=== PATIENT | male | born 1950 | race Caucasian/White ===

== ENCOUNTER → 2018-02-13 10:10 | Outpatient (CLI) | payer MEDICARE, BC, SELFPAY ==
--- NOTE | 2018-02-13 10:24 | MRI_ITS ---
STUDY: MRI BRAIN WITH AND WITHOUT CONTRAST (ATTENTION INTERNAL AUDITORY CANALS - I.A.C.'s) REASON FOR EXAM: Male, 67 years old. Dizzy spells x3 weeks. No problems. TECHNIQUE: Standardized multiplanar fat and water weighted pulse sequences were obtained. 9 ml of Gadavist contrast material was administered intravenously for the contrast portion of the examination. COMPARISON: None. FINDINGS: No restricted diffusion to suspect acute or subacute ischemic infarct. Normal bilateral temporal bones. Normal bilateral internal auditory canals. There is no demonstrated intracanalicular or cisternal vestibular schwannoma (acoustic neuroma). There is no enhancement of the bilateral VIIth or VIIIth cranial nerves. Normal bilateral cochlea, vestibules and semicircular canals. Normal size of the ventricles and extra-axial spaces for the patient's age. The left periventricular white matter and subcortical white matter T2 FLAIR hyperintensity foci are chronic white matter ischemic changes. Normal bilateral basal ganglia. Normal thalami. Normal flow voids within the major intracranial circulation suggesting patency by spin echo criteria. Normal venous enhancement. There is no enhancing intra-axial or extra-axial abnormality. There is no extra-axial fluid accumulation. Normal sella turcica, pituitary gland, infundibular stalk, optic chiasm and hypothalamus. Normal tectal plate and pineal gland. Normal midbrain, radhames and medulla. Normal cerebellum. Normal basal cisterns. No demonstrated orbital abnormality, within the constraints of a routine brain study. Normal visualized paranasal sinuses. Normal calvarium and skull base. Normal visualized soft tissue structures. Normal visualized upper cervical spine. MRI/Brain W/WO Contrast IMPRESSION: 1. Normal unenhanced and enhanced MRI of the bilateral internal auditory canals (I.A.C's). 2. Few chronic white matter ischemic changes in both cerebral hemispheres. Electronically Signed: Neal Purvis MD at 13:48 EDT , Service support ,
[2018-02-13 10:50] LABS: CREATININE FINGERSTICK 0.6 mg/dL (0.70-1.30); EGFR FINGERSTICK > 60.0000 mL/min (>60)
== END ==
PROVIDERS: Family Provider Family Medicine; PCP Family Medicine; Visit Provider Otolaryngology Otolaryngology/Facial Plastic Surgery
DX: R27.0 Ataxia, unspecified (principal)
CPT/HCPCS: 70553; A9585

== ENCOUNTER → 2018-02-25 08:10 | Outpatient (CLI) | payer MEDICARE, BC, SELFPAY ==
[2018-02-25 10:48] LABS: Absolute Lymphocyte Count 1.81 X10^3/ul (0.83-4.51); Absolute Neutrophil Count 3.4 X10^3/uL (2.0-7.7); Basophil# 0.02 X10^3/uL; Basophil% 0.3 % (0-1); Eosinophil# 0.24 X10^3/uL; Eosinophils% 4.1 % (0-5); Hematocrit 46.5 % (40-54); Hemoglobin 15.7 g/dl (13.0-16.5); Lymphocyte # 1.81 X10^3/ul (4.0); Lymphocyte % 31.2 % (19-41); Mean Corp Hgb Conc 33.8 g/gl (32-36); Mean Corpuscular Hgb 29.3 pg (27.0-32.0); Mean Corpuscular Volume 86.9 fL (80-94); Monocyte# 0.38 X10^3/uL; Monocyte% 6.5 % (0-10); Neutrophil # 3.35 X10^3/uL (2.7-7.7); Neutrophil % 57.7 % (47-70); POSITIVE COUNT NO; POSITIVE DIFFERENTIAL NO; POSITIVE MORPHOLOGY NO; Platelet Count 222 K/mm3 (150-450); RBC Distribution Width CV 13.3 % (11.6-14.6); RBC Distribution Width SD 41.8 fl (35.1-43.9); Red Blood Count 5.35 M/mm3 (4.6-6.2); White Blood Count 5.8 K/mm3 (4.4-11.0)
[2018-02-25 11:14] LABS: Anion Gap 7 (5-15); BUN 16 mg/dL (7-18); BUN/Creat Ratio 18.5 RATIO (10-20); Calcium,Total 8.5 mg/dL (8.5-10.1); Chloride 106 mmol/L (98-107); Cholesterol 172 mg/dL (200); Creatinine, Serum 0.86 mg/dL (0.70-1.30); EST Glomerular Filtration Rate 93 mL/min (>60); Est Glom Filt Rate - Afr Amer 113 mL/min (>60); Glucose 99 mg/dL (74-106); High Density Lipoprotein 45 mg/dL; Potassium 4.1 mmol/L (3.5-5.1); Sodium Level 142 mmol/L (136-145); Thyroid Stim Hormone (TSH) 1.36 uIU/mL (0.358-3.74); Triglycerides 100 mg/dL; Very Low Density Lipoprotein 20 mg/dL (5-40)
== END ==
PROVIDERS: Visit Provider Family Medicine
DX: I10 Essential (primary) hypertension (principal); R53.83 Other fatigue
CPT/HCPCS: 36415; 80048; 80061; 84403; 84443; 85025

== ENCOUNTER → 2018-03-11 14:29 | Outpatient (CLI) | payer MEDICARE, BC, SELFPAY ==
--- NOTE | 2018-03-11 14:33 | RAD_ITS ---
STUDY: X-RAY - CERVICAL SPINE REASON FOR EXAM: Male, 67 years old. Pain TECHNIQUE: 5 view(s) of the cervical spine were obtained. COMPARISON: None FINDINGS: There is degenerative disc disease at C3-C4, C4-C5, C5-C6 and C6-C7. There is multilevel facet osteoarthritis. There is minimal degenerative anterolisthesis at C5-C6. There is no fracture. There is no osseous destruction. The prevertebral soft tissue structures are intact. RAD/Cerv Spine 4 or 5 Views IMPRESSION: Extensive degenerative disease of the cervical spine Electronically Signed: Edward Luke MD at 22:24 EDT Tel , Service support ,
== END ==
PROVIDERS: Family Provider Family Medicine; PCP Family Medicine; Visit Provider Family Medicine
DX: R20.2 Paresthesia of skin (principal)
CPT/HCPCS: 72050

== ENCOUNTER → 2018-03-19 17:34 | Outpatient (CLI) | payer MEDICARE, BC, SELFPAY ==
--- NOTE | 2018-03-19 18:15 | MRI_ITS ---
STUDY: MRI CERVICAL SPINE WITHOUT CONTRAST REASON FOR EXAM: Male, 67 years old. Bilateral arm and hand numbness TECHNIQUE: Standardized fat and water weighted pulse sequences were obtained in the sagittal and axial planes. COMPARISON: None FINDINGS: Straightening of normal cervical lordotic curvature. Craniocervical junction appears unremarkable. No evidence for cord edema or myelomalacia. Minimal retrolisthesis of C3 on C4. Mild anterior wedging of the cervical vertebra seen at C4, C5 and C6 levels. Disc desiccation at all levels. Loss of disc height at C3-C4, C4-C5 levels with endplate degenerative changes. Scattered vertebral body hemangiomas. Anterior and posterior osteophytic spurring. Level by level segmental analysis: C2-C3 level: Uncovertebral joint and facet joint degenerative changes with broad-based disc osteophyte complexes resulting in mild right-sided neural foraminal narrowing without significant central canal stenosis. C3-C4 level: Uncovertebral joint and facet joint degenerative changes and broad-based disc osteophyte complexes with ligamentum flavum thickening resulting in severe bilateral neural foraminal narrowing and [id number] central canal stenosis. C4-C5 level: Uncovertebral joint and facet joint degenerative changes with broad-based disc osteophyte complexes resulting in moderate to severe bilateral neural foraminal narrowing and mild effacement of ventral thecal sac. C5-C6 level: Uncovertebral joint and facet joint degenerative changes are broad-based disc bulge resulting in mild left-sided neural foraminal narrowing and mild effacement of ventral thecal sac. C6-C7 level: Uncovertebral joint and facet joint degenerative changes with broad-based is bulge and right paracentral small disc protrusion with mild flattening of the ventral surface of the spinal cord and mild to moderate left-sided neural foraminal narrowing. C7-T1 level: Bilateral facet hypertrophy with uncovertebral joint degenerative changes and broad-based disc osteophyte complexes with a left paracentral small disc protrusion resulting in mild left-sided neural foraminal narrowing and mild effacement of the left ventrolateral thecal sac. IMPRESSION: Cervical spondylotic changes predominating at C3-C4, C4-C5 and C5-C6 levels. Please see above level by level complete analysis and details. No evidence for acute cervical spine fractures. Electronically Signed: Javon Ni, at 0:03 EDT Tel , Service support , MRI/Spine Cervical (Routine)
== END ==
PROVIDERS: Family Provider Family Medicine; PCP Family Medicine; Visit Provider Family Medicine
DX: R20.2 Paresthesia of skin (principal)
CPT/HCPCS: 72141

== ENCOUNTER 2018-05-05 12:07 | Emergency (ER) | payer MEDICARE, BC, SELFPAY ==
[2018-05-05 12:09] VITALS: BP 143/92; PULSE 85; RESP 18; TEMP 37.1; O2SAT 99; BMI 24.4
--- NOTE | 2018-05-05 12:51 | ED.DCSUM_ITS ---
- ER Visit Summary Date of Service: 05/05/18 Chief Complaint: [] Abdominal pain for about a month History of Present Illness: The patient is a 67 M [] 01 month he has had burning abdominal pain alternating with diarrheal episodes and P abdominal discomfort no nausea vomiting or fever no exposures other than reporting a month ago his seem to have the flu in this began after that he has been on no antibiotics, he has been seen by physicians and there was concern he may have irritable bowel started on Bentyl which did not help he is able to eat but still has crampy burning abdominal discomfort there is diffuse. He has no history of GI ailments, he is able to eat his bowel bladder habits have been normal he feels a sense of constipation Physical Examination: [] His vital signs are within normal range he is in no distress head neck chest unremarkable lungs clear heart tones normal the abdomen is soft there is a vague diffuse discomfort with no focality there is no pain in any specific area, there is no masses no pulsations no fullness rectal exam shows brown stool that soft nontender upper lower extremities and back exam unremarkable exam to inspection is unremarkable Test Results: [] Emergency Department Course and Treatment: [] Screening labs IV fluids pain management CT The patient's screening labs are generally unremarkable see those labs, CT abdomen shows nothing acute except for one loop of bowel that seems to be consistent with ileus or obstruction but the patient's had symptoms for over a month Had a long conversation with him and the we discussed all the above we discussed the need for additional outpatient management via his gastroenterology team the Ha[facility] a bland diet he was taking MiraLAX but stopped doing that as that made his stools very soft and runny, he will return for change in symptoms, he is comfortable with this plan Treatment Plan: [] Disposition: [] Home stable Impression: [] Abdominal pain etiology unclear This note was generated with [employer] dictation software. It may contain incorrect words, spelling, and punctuation that were not noted in review of the chart prior to signing ED Disposition - Plan for ED Patient: Chief Complaint: Abd Pain Referrals: Fernie Diaz MD [Primary Care Provider] -
[2018-05-05 13:29] VITALS: BP 138/64; PULSE 74; RESP 15; O2SAT 99
[2018-05-05] MEDS: 0.9% Normal Saline 1,000 ML 125 ML IV (13:32)
[2018-05-05] MEDS: Ondansetron 4 MG/2 ML Vial IV (13:32)
[2018-05-05] MEDS: morphine 8 MG/ML Syringe IV (13:33)
[2018-05-05 13:41] LABS: Bacteria 0 SEEN /hpf (None Seen); Mucous, Urine 0 SEEN /hpf (<or=2+); Red Blood Cells-Urine 0 SEEN /hpf (0-5); Squamous Epithelial Cells - UA 0 SEEN /hpf (0-5); White Blood Cells 0 SEEN /hpf (0-5)
[2018-05-05 13:43] LABS: Color, Urine Yellow (Yellow); Glucose, Dipstick Normal (Normal); Ketone-Dipstick Negative (Negative); Leukocyte Esterase-Dipstick 25 /ul (Negative); Nitrite-Dipstick Negative (Negative); Occult Blood-Urine Negative /ul (Negative); Protein-Dipstick Negative (Negative); Urine Bilirubin Dipstick Negative (Negative); Urine Clarity Clear (Clear); Urine Urobilinogen Normal (Normal)
[2018-05-05 13:45] LABS: Absolute Lymphocyte Count 1.86 X10^3/ul (0.83-4.51); Absolute Neutrophil Count 4.4 X10^3/uL (2.0-7.7); Basophil# 0.01 X10^3/uL; Basophil% 0.1 % (0-1); Eosinophil# 0.06 X10^3/uL; Eosinophils% 0.9 % (0-5); Hematocrit 46.9 % (40-54); Lymphocyte # 1.86 X10^3/ul (4.0); Lymphocyte % 27.6 % (19-41); Mean Corp Hgb Conc 34.1 g/gl (32-36); Mean Corpuscular Hgb 29.7 pg (27.0-32.0); Mean Platelet Vol. 9.3 fl (6.2-12.0); Monocyte# 0.46 X10^3/uL; Monocyte% 6.8 % (0-10); Neutrophil # 4.36 X10^3/uL (2.7-7.7); Neutrophil % 64.6 % (47-70); POSITIVE COUNT NO; POSITIVE DIFFERENTIAL NO; POSITIVE MORPHOLOGY NO; Platelet Count 210 K/mm3 (150-450); RBC Distribution Width CV 12.7 % (11.6-14.6); RBC Distribution Width SD 40.4 fl (35.1-43.9); Red Blood Count 5.39 M/mm3 (4.6-6.2); White Blood Count 6.8 K/mm3 (4.4-11.0)
[2018-05-05 14:17] LABS: AST(SGOT) 11 U/L (15-37); Alanine Aminotransfer ALT/SGPT 18 U/L (16-61); Albumin, Serum 3.7 g/dL (3.2-5.0); Alkaline Phosphatase 61 U/L (45-117); Anion Gap 8 (5-15); BUN 10 mg/dL (7-18); BUN/Creat Ratio 11.4 RATIO (10-20); Bilirubin, Direct 0.13 mg/dL (0.00-0.30); Calcium,Total 8.5 mg/dL (8.5-10.1); Chloride 106 mmol/L (98-107); Creatinine, Serum 0.87 mg/dL (0.70-1.30); EST Glomerular Filtration Rate 92 mL/min (>60); Est Glom Filt Rate - Afr Amer 111 mL/min (>60); Estimated Creatinine Clearance 90.56 ml/min; Glucose 105 mg/dL (74-106); Lipase 238 U/L (73-393); Potassium 3.9 mmol/L (3.5-5.1); Protein, Total 6.7 g/dL (6.4-8.2); Sodium Level 142 mmol/L (136-145)
[2018-05-05 14:25] VITALS: BP 128/86; PULSE 67; RESP 15; O2SAT 96
[2018-05-05 15:30] VITALS: BP 110/64; PULSE 73; RESP 15; O2SAT 99
--- NOTE | 2018-05-05 16:01 | ED.DEP ---
ED Disposition - Plan for ED Patient: Chief Complaint: Abd Pain Instructions: ED Abdominal Pain Unkn Cause Referrals: Fernie Diaz MD [Primary Care Provider] -
[2018-05-05 16:17] VITALS: BP 136/93; PULSE 73; RESP 16; O2SAT 96
== END 2018-05-05 16:18 | disposition home or self-care (01) ==
PROVIDERS: Emergency Provider Emergency Medicine; Family Provider Family Medicine; PCP Family Medicine
DX: R10.9 Unspecified abdominal pain (principal); K59.00 Constipation, unspecified; R19.7 Diarrhea, unspecified; Z79.899 Other long term (current) drug therapy
CPT/HCPCS: 74176; 80048; 80076; 81001; 83690; 85025; 96361; 96374; 96375; 99283; J7030; J2405

== ENCOUNTER → 2018-05-10 08:57 | Outpatient (CLI) | payer MEDICARE, BC, SELFPAY ==
--- NOTE | 2018-05-10 09:10 | RAD_ITS ---
PROCEDURE: SMALL BOWEL SERIES DATE OF EXAMINATION: May 10, 2018. INDICATION: Male, 67 years old. One-month history of abdominal pain. PHYSICIAN: Harpal Mares M.D. FLUOROSCOPY TIME (if supplied): (30 seconds) minutes/seconds TECHNIQUE: Radiographic and fluoroscopic images were taken of the small intestine following the ingestion of barium. COMPARISON: None. FINDINGS: A preliminary supine KUB was obtained. There is an unremarkable bowel gas pattern. Fecal material is present throughout the colon. Phleboliths are present within the pelvis. The lung bases are unremarkable. The osseous structures are normal. The patient orally ingested approximately 12 ounces of thin barium Normal visualized fundus, body, and antrum of the stomach. Normal duodenal bulb, C-loop, and proximal jejunum. Normal visualized mucosal folds of the jejunum and ileum. There are no demonstrated dilatations, strictures, or masses of the small intestine. There is no mass displacement of the loops of small intestine. There is a normal motor pattern with barium reaching the colon within approximately 30 minutes. Spot films under fluoroscopic observation demonstrated a normal terminal ileum and ileocecal valve. RAD/Small Bowel Series Only IMPRESSION: Normal small bowel series. Electronically Signed: Harpal Mares MD at 8:36 EDT Tel [phone], Service support ,
== END ==
PROVIDERS: Family Provider Family Medicine; PCP Family Medicine; Visit Provider Internal Medicine Gastroenterology
DX: R10.9 Unspecified abdominal pain (principal); K56.7 Ileus, unspecified
CPT/HCPCS: 74250

== ENCOUNTER 2018-05-28 09:57 | Inpatient (IN) | payer MEDICARE, BC, SELFPAY ==
[2018-05-28] VITALS (10 sets, daily range): BP systolic 119–142; BP diastolic 74–91; PULSE 80–104; RESP 16–18; TEMP 36.4–36.9; O2SAT 95–99; BMI 23.4; BMI 23.5
--- NOTE | 2018-05-28 10:21 | EKG12_ITS ---
Test Reason : ABD PAIN Blood Pressure : / mmHG Vent. Rate : 086 BPM Atrial Rate : 086 BPM P-R Int : 148 ms QRS Dur : 082 ms QT Int : 394 ms P-R-T Axes : 061 -18 071 degrees QTc Int : 471 ms Sinus rhythm with occasional Premature ventricular complexes Otherwise normal ECG Confirmed by ELVI BARTON, BHARATH ([id number]), magazine editor IESHA SMILEY ([id number]) on 06/03/2018 3:28:14 PM Referred By: Jose Antonio Alegria Confirmed By:BHARATH BOLES MD
--- NOTE | 2018-05-28 10:22 | US_ITS ---
STUDY: ABDOMINAL ULTRASOUND - RIGHT UPPER QUADRANT REASON FOR VISIT: Male, 68 years old. Epigastric pain x1 month TECHNIQUE: Ultrasound evaluation of the right upper quadrant was performed with real-time and static soares-scale imaging. TECHNICAL QUALITY: Adequate. COMPARISON: None. FINDINGS: Liver: The liver measures 16.7 cm. There is normal echogenicity of the liver. The bile ducts are within normal limits. There is hepatic color flow. The direction of portal flow is hepatopetal. There is no demonstrated mass lesion. Gallbladder: Normal distended gallbladder. The gallbladder wall measures 2.6 mm. There is a negative sonographic Overton's sign. There is no pericholecystic fluid. There are no gallstones. Common Bile Duct (C.B.D.): The common bile duct measures 3.8 mm. Pancreas: Normal size of the head, body and tail of the pancreas. There is normal echogenicity of the pancreas. There is no demonstrated pancreatic mass or cyst. Right Kidney: Normal size of the right kidney. The right kidney measures 12.1 cm. Normal renal cortex. The right cortex measures 1.1 cm. There is no demonstrated renal mass or cyst. There is no right hydronephrosis. Punctate 3 mm nonobstructing mid pole stone. US/Gallbladder IMPRESSION: Normal right upper quadrant ultrasound examination. Punctate nonobstructing right midpole stone Electronically Signed: Justo Duque DO at 12:10 EDT Tel , Service support ,
[2018-05-28 10:38] LABS: Absolute Neutrophil Count 4.9 X10^3/uL (2.0-7.7); Basophil# 0.01 X10^3/uL; Basophil% 0.2 % (0-1); Eosinophil# 0.06 X10^3/uL; Eosinophils% 0.9 % (0-5); Hematocrit 42.7 % (40-54); Hemoglobin 14.4 g/dl (13.0-16.5); Lymphocyte % 15.2 % (19-41); Mean Corp Hgb Conc 33.7 g/gl (32-36); Mean Corpuscular Hgb 29.1 pg (27.0-32.0); Mean Corpuscular Volume 86.4 fL (80-94); Monocyte# 0.62 X10^3/uL; Monocyte% 9.4 % (0-10); Neutrophil # 4.89 X10^3/uL (2.7-7.7); Neutrophil % 74.3 % (47-70); Platelet Count 243 K/mm3 (150-450); RBC Distribution Width CV 12.7 % (11.6-14.6); RBC Distribution Width SD 40.3 fl (35.1-43.9); Red Blood Count 4.94 M/mm3 (4.6-6.2); White Blood Count 6.6 K/mm3 (4.4-11.0)
[2018-05-28 10:39] LABS: POSITIVE COUNT NO; POSITIVE DIFFERENTIAL NO; POSITIVE MORPHOLOGY NO
[2018-05-28] MEDS: Ondansetron 4 MG/2 ML Vial IV (10:43)
[2018-05-28] MEDS: Morphine 4 MG/ML Syringe IV (10:43)
[2018-05-28] MEDS: 0.9% Normal Saline 1,000 ML 125 ML IV ×2 (10:43→17:01)
[2018-05-28 11:01] LABS: ALB/GLOB Ratio 0.8 RATIO (0.9-2.4); AST(SGOT) 27 U/L (15-37); Alanine Aminotransfer ALT/SGPT 38 U/L (16-61); Alkaline Phosphatase 109 U/L (45-117); Anion Gap 7 (5-15); BUN 10 mg/dL (7-18); BUN/Creat Ratio 13.8 RATIO (10-20); Calcium,Total 8.4 mg/dL (8.5-10.1); Chloride 103 mmol/L (98-107); Creatinine, Serum 0.72 mg/dL (0.70-1.30); EST Glomerular Filtration Rate 114 mL/min (>60); Est Glom Filt Rate - Afr Amer 138 mL/min (>60); Estimated Creatinine Clearance 77.68 ml/min; Globulin 3.9 g/dL (2.2-4.2); Glucose 112 mg/dL (74-106); Lipase 230 U/L (73-393); Potassium 3.8 mmol/L (3.5-5.1); Protein, Total 6.9 g/dL (6.4-8.2); Sodium Level 139 mmol/L (136-145)
[2018-05-28 11:05] LABS: Lactic Acid 0.9 mmol/L (0.4-2.0)
[2018-05-28] MEDS: Aspirin 81 MG TAB.CHEW 324 MG PO (11:44)
--- NOTE | 2018-05-28 11:45 | CT_ITS ---
STUDY: CT ABDOMEN AND PELVIS WITH CONTRAST REASON FOR EXAM: Male, 68 years old. Abdominal pain. Diarrhea and bloating. RADIATION DOSAGE (If Supplied By Facility): CTDIvol = ( 12.16 ) mGy, DLP = ( 884.79 ) mGycm TECHNIQUE: Transaxial images were obtained from the dome of the diaphragm to the symphysis pubis with oral contrast. 100ML ml of Isovue 300 contrast was administered. Sagittal and coronal images were reconstructed. Individualized dose optimization techniques were used for this CT. COMPARISON: Comparison is made with prior examination dated May 05, 2018. FINDINGS: Minimal increased markings at the left lung base suggestive of mild atelectasis. Coronary artery calcification. Normal liver. Normal gallbladder and extrahepatic biliary system. There is a benign calcified granuloma of the spleen. Normal pancreas. Normal bilateral adrenal glands. Normal right kidney. Normal left kidney. There is a small hiatal hernia. Normal small intestine. There are multiple colonic diverticula consistent with diverticulosis. The appendix is visualized and appears normal. There is scattered atherosclerotic calcification of the abdominal aorta, without a demonstrated aneurysm. Normal inferior vena cava. Normal retroperitoneum. Normal urinary bladder. There is a left-sided inguinal hernia containing adipose tissue. There are diffuse degenerative changes of the visualized lumbar spine. CT/Abdomen/Pelvis WITH Contrast IMPRESSION: No acute abnormality is seen. Electronically Signed: Harpal Mares MD at 14:49 EDT Tel [phone], Service support ,
--- NOTE | 2018-05-28 12:12 | ED.VISSUMM ---
- ER Visit Summary Date of Service: 05/28/18 Chief Complaint: [Abdominal pain] History of Present Illness: The patient is a 68 M [presents the emergency department complaint of abdominal pain times 3 months. Patient states that he was seen in the emergency department about a month ago and had a CAT scan that did not show anything significant subsequently patient followed up with Dr. Becker who ordered a small bowel follow-through that was normal. Patient had a burning diffuse abdominal pain is been continuous. Patient states that food makes the pain worse. Patient's had nausea. Patient is lost over 7 pounds. also states that his stools have been very thin and pencil like. Patient denies any blood in his stool or black tarry stools. Denies any fevers. He denies any chest pain or shortness of breath.] Physical Examination: [HEENT-PERRLA, EOMI. Cranial nerves II through XII grossly intact. TMs clear. Mucous membranes moist. No adenopathy. Cardiovascular-regular rate and rhythm without murmur or ectopy Lungs-clear to auscultation, chest wall stable without crepitus or subcu emphysema Abdomen-normoactive bowel sounds, soft. Patient has diffuse tenderness to palpation. There is no rebound, rigidity, or perineal signs. Extremities-intact ?4, normal range of motion, normal pulses, atraumatic] Test Results: [EKG obtained on arrival shows sinus rhythm with a ventricular rate of 86 bpm with occasional PVCs otherwise nothing acute. CBC with differential was normal. Chemistries were normal. All LFTs were normal. Lipase was normal. Troponin was elevated 1.06. Gallbladder ultrasound ordered and results pending. CT scan of abdomen and pelvis with IV and p.o. contrast ordered and pending.] Emergency Department Course and Treatment: [Patient was treated with aspirin. Case was discussed with Dr. Real Roque the patient has seen in the past and I was asked to obtain a CT scan of the abdomen pelvis with IV contrast and he will consult on the case. I also discussed case with aquatics instructor on-call Dr. Fernie Murcia who will consult. I discussed case with hospitalist Dr. Alegria who will evaluate patient for admission.] Patient was medicated with morphine and Zofran as well as a GI cocktail. Patient received aspirin in the department. Treatment Plan: [Admit for further workup and evaluation] Disposition: [Admit] Impression: [Abdominal pain-etiology uncertain Non-ST elevation [place]] This note was generated with [email or web address] dictation software. It may contain incorrect words, spelling, and punctuation that were not noted in review of the chart prior to signing ED Disposition - Plan for ED Patient: Chief Complaint: Abd Pain Referrals: Fernie Diaz MD [Primary Care Provider] -
--- NOTE | 2018-05-28 12:15 | ED.DCSUM_ITS ---
- ER Visit Summary Date of Service: 05/28/18 Chief Complaint: [Abdominal pain] History of Present Illness: The patient is a 68 M [presents the emergency department complaint of abdominal pain times 3 months. Patient states that he was seen in the emergency department about a month ago and had a CAT scan that did not show anything significant subsequently patient followed up with Dr. Becker who ordered a small bowel follow-through that was normal. Patient had a burning diffuse abdominal pain is been continuous. Patient states that food makes the pain worse. Patient's had nausea. Patient is lost over 7 pounds. also states that his stools have been very thin and pencil like. Patient denies any blood in his stool or black tarry stools. Denies any fevers. He denies any chest pain or shortness of breath.] Physical Examination: [HEENT-PERRLA, EOMI. Cranial nerves II through XII grossly intact. TMs clear. Mucous membranes moist. No adenopathy. Cardiovascular-regular rate and rhythm without murmur or ectopy Lungs-clear to auscultation, chest wall stable without crepitus or subcu emphysema Abdomen-normoactive bowel sounds, soft. Patient has diffuse tenderness to palpation. There is no rebound, rigidity, or perineal signs. Extremities-intact ?4, normal range of motion, normal pulses, atraumatic] Test Results: [EKG obtained on arrival shows sinus rhythm with a ventricular rate of 86 bpm with occasional PVCs otherwise nothing acute. CBC with differential was normal. Chemistries were normal. All LFTs were normal. Lipase was normal. Troponin was elevated 1.06. Gallbladder ultrasound ordered and results pending. CT scan of abdomen and pelvis with IV and p.o. contrast ordered and pending.] Emergency Department Course and Treatment: [Patient was treated with aspirin. Case was discussed with Dr. Real Roque the patient has seen in the past and I was asked to obtain a CT scan of the abdomen pelvis with IV contrast and he will consult on the case. I also discussed case with high school librarian on-call Dr. Fernie Mrucia who will consult. I discussed case with hospitalist Dr. Alegria who will evaluate patient for admission.] Patient was medicated with morphine and Zofran as well as a GI cocktail. Patient received aspirin in the department. Treatment Plan: [Admit for further workup and evaluation] Disposition: [Admit] Impression: [Abdominal pain-etiology uncertain Non-ST elevation [place]] This note was generated with [employer] dictation software. It may contain incorrect words, spelling, and punctuation that were not noted in review of the chart prior to signing ED Disposition - Plan for ED Patient: Chief Complaint: Abd Pain Referrals: Fernie Diaz MD [Primary Care Provider] -
--- NOTE | 2018-05-28 12:17 | CM.ED ---
CM INITIAL ASSESSMENT: Patient assessed, with at bedside, in the ED. Home: Patient states he lives in a two-story home with his . He states he has first floor setup, if needed. HHS/Aides: Denies present and past. Patient states his is a great caregiver. DME: Denies DME use. Patient's states their basement is full of DME from her parents' use, if needed. She states the only thing they don't have is an elevated toilet seat. Home Oxygen: Denies. Pharmacy: [facility] in [place]. Advance Directives: Yes, these documents are verified in e-chart. Patient's , Reshma, is his medical POA. PCP: Fernie Diaz Specialists: Dr. Becker for recent abdominal pain. Dr. Simon for hernia surgery one year ago. DC Plan: Home, with family support. CM will continue to follow for safe and effective discharge planning.
--- NOTE | 2018-05-28 12:57 | HP.PCM_ITS ---
Problem List (1) Abdominal pain Status: Acute (2) Cervical neuropathy Status: Chronic Comment: Cervical fusion surgery on 05/20/2018 (3) Elevated troponin Status: Chronic (4) Hypertension Status: Chronic History of Present Illness Date of Admission: 05/28/18 Chief Complaint: Abdominal pain for 3 months The patient is a 68 year old M with history of hypertension and cervical neuropathy status post cervical spine fusion about a week ago at [facility] came to ER with abdominal pain for about 3 months. His pain is constant, generalized but worse in upper abdomen without radiation to chest. Patient has nausea and food makes the abdominal pain worse and has loss of appetite. Patient has lost weight about 7 pounds in last 3 months. Also complaining of pencil thin like stool and sometimes he has diarrhea alternating with constipation. Patient had right inguinal hernia repair by Dr. Simon in the past and would like to see him. Patient has seen Dr. Mcgee about 3 weeks ago and had small bowel follow-through series which showed normal visualized mucosal folds of jejunum and ileum with no demonstrated dilatation, stricture or masses of the small intestine. Normal motor pattern of colon. Prior to that, he had CT abdomen 05/05/2018 without contrast which reported single mildly dilated small bowel loop with air-fluid level in left midabdomen otherwise normal. He had multiple colonic diverticula. In ED, right upper quadrant sonogram was done and is reported normal. Lab tests are unremarkable except troponin came 1.06 [] Past Medical History Past Medical History (Chronic Problems): Chronic Problems (Last Updated 11/24/17 @ 09:22 by Sylvia Garcia) Cervical neuropathy (Chronic) Cervical fusion surgery on 05/20/2018 Elevated troponin (Chronic) Hypertension (Chronic) Medical History: Medical History (Last Updated 11/24/17 @ 09:22 by Sylvia Garcia) HTN (hypertension) I10 Allergies No Known Allergies Allergy (Verified 05/28/18 10:01) Home Medications: Ambulatory Orders Medication Instructions Recorded Finasteride [Proscar] 5 mg PO DAILY 05/05/18 Losartan Potassium 50 mg PO DAILY 05/05/18 Omeprazole Magnesium [Prilosec Otc] 20 mg PO DAILY 05/05/18 Dicyclomine HCl 20 mg PO TID 05/28/18 Duloxetine HCl 30 mg PO DAILY 05/28/18 Gabapentin [Neurontin] 300 mg PO DAILY 05/28/18 Surgical History: no surgical history Smoking Status: Former smoker - *Family History Paternal History Items: No pertinent history Review of Systems Constitutional: Reports: Anorexia, Malaise, Weakness, Weight Change, Fatigue. Denies: Chills, Fever HEENT: Denies: Head Aches, Sinus Congestion, Sinus Drainage Cardiovascular: Denies: Chest Pain, Palpitations Respiratory: Denies: Cough, Shortness of breath at rest, Sputum production Gastrointestinal: Reports: Abdominal Pain, Constipation, Diarrhea, Nausea. Denies: Vomiting Genitourinary: Denies: Dysuria, Frequency, Hematuria, Hesitancy Musculoskeletal: Reports: Joint stiffness, Neck Pain. Denies: Joint Pain, Joint Tenderness Skin: Denies: Rash, Wounds Neurological: Denies: Numbness, Tingling, Focal weakness Psychiatric: Denies: Anxiety, Depression, Homicidal Ideations, Suicidal Ideation s Hematologic/ Lymphatic: Denies: Easy Bruising, Easy Bleeding VTE Information - Inpt Only VTE Present on Admission: No VTE Mechan Device Prophylaxis: SCD's, None VTE Pharm Prophylaxis ordered?: Yes Patient Problems: Active and Suspected Problems (Last Updated 11/24/17 @ 09:22 by Sylvia Garcia) Abdominal pain (Acute) - Physical Exam General: Alert, Oriented x3, Cooperative HEENT: Atraumatic, PERRLA, EOMI, Normocephalic Oral: Dry Mucosa Neck: Supple, No JVD, Negative Carotid Bruits Lungs: Clear to auscultation, Normal air movement, No rhonchi, No wheeze, No rales Cardiovascular: Regular rate, Regular Rhythm, Normal S1, Normal S2, No murmurs Abdomen: Bowel Sounds Present, Soft, Non-Distended, Hypoactive Bowel Sounds, Tender - Mild diffuse tenderness present predominantly in upper abdomen both right and left upper quadrants Extremities: No edema, Capillary Refill Less than 3 Seconds Skin: No rashes, No breakdown Musculoskeletal: No Tenderness to Palpation of Joints or Extremities Neurological: Cranial nerves II-XII grossly intact Psych/Mental Status: Normal Affect, Appropriate Vital Signs Temp Pulse Resp BP Pulse Ox 97.6 F L 84 18 119/84 H 97 05/28/18 09:58 05/28/18 12:14 05/28/18 12:14 05/28/18 12:14 05/28/18 12:14 Oxygen Delivery Method Room Air Weight: 177 lb 11.081 oz Body Mass Index (BMI) 23.4 Laboratory Tests Past 24 Hrs 05/28/18 05/28/18 05/28/18 10:30 10:30 10:30 WBC 6.6 RBC 4.94 Hgb 14.4 Hct 42.7 MCV 86.4 MCH 29.1 MCHC 33.7 RDW 12.7 RDW Differential 40.3 Plt Count 243 MPV 9.0 Immature Gran % (Auto) 0.000 Neut % (Auto) 74.3 H Lymph % (Auto) 15.[address] [place] % (Auto) 9.4 Eos % (Auto) 0.9 Baso % (Auto) 0.2 Absolute Neuts (auto) 4.9 Absolute Lymphs (auto) 1.00 Total Counted Not Reportable Sodium 139 Potassium 3.8 Chloride 103 Carbon Dioxide 29.0 Anion Gap 7 BUN 10 Creatinine 0.72 Estim Creat Clear Calc 77.68 Est GFR (MDRD) Af Amer 138 Est GFR (MDRD) Non-Af 114 BUN/Creatinine Ratio 13.8 Glucose 112 H Lactic Acid 0.9 Calcium 8.4 L Total Bilirubin 0.50 AST 27 ALT 38 Alkaline Phosphatase 109 Troponin I 1.060 H* Total Protein 6.9 Albumin 3.0 L Globulin 3.9 Albumin/Globulin Ratio 0.8 L Lipase 230 Assessment/Plan All Active Problems (Last Updated 11/24/17 @ 09:22 by Sylvia Garcia) Abdominal pain (Acute) The patient is a 68 year old M with history of hypertension and cervical neuropathy status post cervical spine fusion about a week ago at [facility] came to ER with abdominal pain for about 3 months. His pain is constant, generalized but worse in upper abdomen without radiation to chest. Patient has nausea and food makes the abdominal pain worse and has loss of appetite. Patient has lost weight about 7 pounds in last 3 months. Also complaining of pencil thin like stool and sometimes he has diarrhea alternating with constipation. Patient had right inguinal hernia repair by Dr. Simon in the past and would like to see him. Patient has seen Dr. Mcgee about 3 weeks ago and had small bowel follow-through series which showed normal visualized mucosal folds of jejunum and ileum with no demonstrated dilatation, stricture or masses of the small intestine. Normal motor pattern of colon. Prior to that, he had CT abdomen 05/05/2018 without contrast which reported single mildly dilated small bowel loop with air-fluid level in left midabdomen otherwise normal. He had multiple colonic diverticula. In ED, right upper quadrant sonogram was done and is reported normal. Lab tests are unremarkable except troponin came 1.06. EKG shows normal sinus rhythm with occasional PVCs no significant ST-T changes suggestive of ischemia 1. Subacute/chronic abdominal pain, etiology unclear, probably malabsorption syndrome: Patient had extensive abdominal imaging workup including CT abdomen, ultrasound and small bowel series as mentioned above. He also had about 3 times colonoscopy every 10 years starting at age 48 and last one about for 5 years ago and was told everything normal although no document available to corroborate that. Patient is being admitted on PCU. IV fluid normal saline. We will keep patient n.p.o. Stool studies ordered including lactoferrin, ova parasite, occult blood. Stool for fecal fat celiac disease panel ordered. General surgery consult. Dr. Simon advised CT abdomen with oral and IV contrast. Symptomatic management for nausea, abdominal pain. 2. Elevated troponin: Patient denies any previous cardiopulmonary history. He had a stress, more than 25 years ago and was normal. 2D echo ordered. EKG does not show ischemic changes. Repeat EKG ordered. Serial troponin ordered. cardiology consult Dr. Murcia requested. 3. Recent cervical spine fusion surgery: Dressing is dry. Patient had cervical fusion surgery in [facility] on 05/21/2018. Will need change of dressing. 4. Hypertension: Blood pressure is controlled. Tubovillous: On heparin 5000 units twice daily. Laboratory Results 05/28/18 10:30: WBC 6.6, RBC 4.94, Hgb 14.4, Hct 42.7, MCV 86.4, MCH 29.1, MCHC 33.7, RDW 12.7, RDW Differential 40.3, Plt Count 243, MPV 9.0, Immature Gran % (Auto) 0.000, Neut % (Auto) 74.3 H, Lymph % (Auto) 15.2 L, [facility] % (Auto) 9.4, Eos % (Auto) 0.9, Baso % (Auto) 0.2, Absolute Neuts (auto) 4.9, Absolute Lymphs (auto) 1.00, Total Counted Not Reportable 05/28/18 10:30: Sodium 139, Potassium 3.8, Chloride 103, Carbon Dioxide 29.0, Anion Gap 7, BUN 10, Creatinine 0.72, Estim Creat Clear Calc 77.68, Est GFR (MDRD) Af Amer 138, Est GFR (MDRD) Non-Af 114, BUN/Creatinine Ratio 13.8, Glucose 112 H, Calcium 8.4 L, Total Bilirubin 0.50, AST 27, ALT 38, Alkaline Phosphatase 109, Troponin I 1.060 H*, Total Protein 6.9, Albumin 3.0 L, Globulin 3.9, Albumin/Globulin Ratio 0.8 L, Lipase 230 05/28/18 10:30: Lactic Acid 0.9 Clinical Impression(s) from Imaging Studies Gallbladder Ultrasound 05/28/18 10:22 IMPRESSION: Normal right upper quadrant ultrasound examination. Punctate nonobstructing right midpole stone Code Visit Inpatient E&M: 86351 Init Hosp L3
--- NOTE | 2018-05-28 13:05 | ECHOD_ITS ---
Reason For Study: ELEVATED TROPONIN Procedure This was a 2D Doppler, Color Flow transthoracic echocardiogram. Pt in supine position s/p LHC/ PTCA. Exam performed portable in ICU/CCU. Left Ventricle Mildly dilated left ventricle. The estimated ejection fraction is 40 %. Stage 1 diastolic dysfunction. There is moderate global hypokinesis of the left ventricle. Right Ventricle Normal size and thickness. Normal systolic function. Atria Normal left atrium. Normal right atrium. Normal atrial septum. Mitral Valve The mitral valve is structurally normal. No prolapse or stenosis seen. Tricuspid Valve Normal tricuspid valve. Unable to estimate RV systolic pressure due to inadequate jet, pulmonary artery pressure probably normal. Aortic Valve Trisinus/trileaflet aortic valve. Mild focal aortic valve thickening. Mild (1+) aortic valve insufficiency. Pulmonic Valve Normal pulmonic valve. Mild (1+) pulmonic valve insufficiency. Great Vessels Normal aortic root. Normal arch. Normal inferior vena cava. Inferior vena cava collapse with sniff. Pericardium/Pleural No pericardial effusion. MMode/2D Measurements & Calculations LVIDd: 5.3 cm IVSd: 0.97 cm Ao root diam: 4.2 cm LVIDs: 4.1 cm LVPWd: 0.94 cm LA dimension: 3.1 cm RVDd: 2.6 cm FS: 22.5 % LAV(MOD-bp): 45.9 ml LA A4 area: 17.6 cm2 RA A4 area: 13.0 cm2 LAV(MOD-bp) Indexed: 22.4 ml/m2 LAV(MOD-sp2): 42.8 ml LAV(MOD-sp4): 44.2 ml Time Measurements MV dec time: 0.26 sec Doppler Measurements & Calculations MV E max donald: 50.7 cm/sec Lat Peak E' Donald: 5.7 cm/sec Med Peak E' Donald: 4.5 cm/sec MV A max donald: 66.5 cm/sec E/E' lat: 8.9 E/E' med: 11.4 MV E/A: 0.76 Ao V2 max: 96.9 cm/sec AI max donald: 381.7 cm/sec LV V1 max: 92.4 cm/sec Ao max P.8 mmHg AI max P.3 mmHg LV V1 max P.4 mmHg AI dec slope: 223.7 cm/sec2 AI P1/2t: 499.8 msec PA V2 max: 99.0 cm/sec Interpretation Summary Mildly dilated left ventricle. The estimated ejection fraction is 40 %. There is moderate global hypokinesis of the left ventricle. Stage 1 diastolic dysfunction. Unable to estimate RV systolic pressure due to inadequate jet, pulmonary artery pressure probably normal. Mild (1+) aortic valve insufficiency. There is no comparison study available. Ordering Physician: Jose Antonio Alegria Referring Physician: SHELL YBARRA Performed By: Junie Delacruz RDCS, RVT
[2018-05-28 15:07] LABS: Bacteria 0 SEEN /hpf (None Seen); Mucous, Urine 0 SEEN /hpf (<or=2+); Red Blood Cells-Urine 0 SEEN /hpf (0-5); Squamous Epithelial Cells - UA 0 SEEN /hpf (0-5); White Blood Cells 0 SEEN /hpf (0-5)
[2018-05-28 15:08] LABS: Color, Urine Yellow (Yellow); Glucose, Dipstick Normal (Normal); Ketone-Dipstick 5 mg/dl (Negative); Leukocyte Esterase-Dipstick Negative /ul (Negative); Nitrite-Dipstick Negative (Negative); Occult Blood-Urine Negative /ul (Negative); Protein-Dipstick Negative (Negative); Urine Bilirubin Dipstick Negative (Negative); Urine Clarity Clear (Clear); Urine Urobilinogen Normal (Normal)
--- NOTE | 2018-05-28 15:44 | VDLE_ITS ---
Reason For Study: LEG SWELLING RIGHT LEFT GSV is normal. GSV is normal. CFV is compressible, spontaneous, phasic, CFV is compressible, spontaneous, phasic, competent and demonstrates normal competent, and demonstrates normal augmentation. augmentation. FV is compressible, spontaneous, phasic, FV is compressible, spontaneous, phasic, competent and demonstrates normal competent and demonstrates normal augmentation. augmentation. POP V is compressible, spontaneous, phasic, POP V is compressible, spontaneous, phasic, competent and demonstrates normal competent and demonstrates normal augmentation. augmentation. T/P Trunk is compressible. T/P Trunk is compressible. PTV is compressible. PTV is compressible. RT PerV is compressible. LT PerV is compressible. Procedure Exam performed portable in patient room. A preliminary report was called and/or faxed to [facility]. Interpretation Summary No evidence for acute deep venous thrombosis bilateral lower extremities with patent and compressible bilateral great saphenous veins. Ordering Physician: Jose Antonio Alegria Referring Physician: Fernie Diaz Performed By: Jaimie Means RVT
--- NOTE | 2018-05-28 16:06 | EKG12_ITS ---
Test Reason : ELEVATED TROPONIN Blood Pressure : / mmHG Vent. Rate : 084 BPM Atrial Rate : 084 BPM P-R Int : 144 ms QRS Dur : 094 ms QT Int : 390 ms P-R-T Axes : 039 -23 030 degrees QTc Int : 460 ms Sinus rhythm with frequent Premature ventricular complexes Minimal voltage criteria for LVH, may be normal variant Borderline ECG When compared with ECG of 31-DEC-2011 20:12, Premature ventricular complexes are now Present Confirmed by ELVI BARTON, BHARATH ([id number]), deputy editor in chief IESHA SMILEY ([id number]) on 06/03/2018 3:48:54 PM Referred By: Jose Antonio Alegria Confirmed By:BHARATH BOLES MD
[2018-05-28 16:14] LABS: D-Dimer Quantitative (DVT/PE) 0.84 FEU/ug/m (0.27-0.49)
--- NOTE | 2018-05-28 16:28 | PCM.CONS.C ---
Problem List (1) NSTEMI (non-ST elevated myocardial infarction) Status: Acute (2) Hypertension Status: Chronic (3) S/P cervical spinal fusion Status: Acute (4) Abdominal pain Status: Acute Reason for Consult Date of Consultation: 05/28/18 History of Present Illness: The patient is a 68 year old white male with a past cardiovascular history which is included hypertension who is now status post cervical spine fusion therapy approximately 1 week ago and with ongoing abdominal discomfort. He presents for evaluation of abnormal troponin I levels compatible with a non-ST segment elevation DC. To the best of his knowledge she has no cardiovascular history other than his hypertension. He believes he underwent an exercise tolerance test/imaging study decades ago. He has never undergone invasive evaluation or care. He states his main concern has been, for the last several weeks, status post eating a fish sandwich from [place], abdominal discomfort. He states this is progressively gotten worse. He notes at times his abdomen not only hurts but feels as if it is on fire . He states his bowel movements have changed from being very regular to irregular and having at times questionable color changes of his bowel movements as well as pencil thin bowel movements. He states he can feel nauseated. He has had vague shoulder discomfort which he has attributed to his previous cervical spine fusion procedure. He denies ongoing chest discomfort at this time. He has had no acute change in his respiratory status. He has had no episodes of near syncope or syncope. He presented based upon his normal discomfort. During his evaluation he had laboratory studies performed. A troponin I level was performed which was abnormal/elevated. It was repeated and continued to elevate. His ECG demonstrated sinus rhythm with an occasional PVC but no acute ECG changes. He had an abdominal/pelvic CT scan which suggested coronary artery calcification as well as peripheral atherosclerosis. He was subsequently placed in the PCU for further evaluation and care. Present time he states his main concern continues to be his abdominal discomfort. [] Past Medical History Allergies/Adverse Reactions: Allergies No Known Allergies Allergy (Verified 05/28/18 10:01) Home Medications: Ambulatory Orders Medication Instructions Recorded Finasteride [Proscar] 5 mg PO DAILY 05/05/18 Losartan Potassium 50 mg PO DAILY 05/05/18 Omeprazole Magnesium [Prilosec Otc] 20 mg PO DAILY 05/05/18 Past Medical History (Chronic Problems): Chronic Problems (Last Updated 11/24/17 @ 09:22 by Sylvia Garcia) Cervical neuropathy (Chronic) Cervical fusion surgery on 05/20/2018 Elevated troponin (Chronic) Hypertension (Chronic) Surgical History: no surgical history - *Family History Paternal History Items: No pertinent history Lives: Spouse/ Significant Other Smoking Status: Former smoker Tobacco Use: Cigarettes Alcohol: None Drugs: None Review of Systems - Review of Systems General: Denies: Fever, Night Sweats, Fatigue Cardiovascular: Reports: - - Shoulder discomfort. Denies: Chest Discomfort, Shortness of Breath, Orthopnea, PND, Peripheral Edema, Palpitations, Lightheadedness, Dizziness, Near Syncope, Syncope Respiratory: Denies: Cough, Sputum Production, Hemoptysis Gastrointestinal: Reports: Abdominal Discomfort, Nausea. Denies: Hematemesis, Hematochezia, Melena Genitourinary: Denies: Dysuria, Hematuria Skin: Denies: Rash Subjectve: Is a 68-year-old white male who appears to be resting comfortably at the moment in no acute distress. Objective: Vital Signs Temp Pulse Resp BP Pulse Ox 98.5 F 87 16 128/74 H 95 05/28/18 12:50 05/28/18 13:07 05/28/18 12:50 05/28/18 12:50 05/28/18 12:50 Oxygen Delivery Method Room Air Weight: 178 lb 2.136 oz Body Mass Index (BMI) 23.5 General: Awake, Alert, Oriented x 3, Cooperative, No Acute Distress HEENT: Atraumatic, Normocephalic, PERRL, EOMI, Sclera Non Icteric Oral: Moist Mucosa Neck: Supple, Good ROM, No JVD Lungs: Clear to auscultation Cardiovascular: Regular Rhythm, Premature Ectopic Beats, Normal S1, Normal S2 Vascular: No Carotid Bruits Abdomen: Bowel Sounds Present, Soft, - - Positive diffuse tenderness Extremities: No Cyanosis, No Clubbing, No edema Neurological: No Focal Motor or Sensory Deficit Psych/Mental Status: Appropriate, Normal Affect 05/28/18 10:30: WBC 6.6, RBC 4.94, Hgb 14.4, Hct 42.7, MCV 86.4, MCH 29.1, MCHC 33.7, RDW 12.7, RDW Differential 40.3, Plt Count 243, MPV 9.0, Immature Gran % (Auto) 0.000, Neut % (Auto) 74.3 H, Lymph % (Auto) 15.2 L, [place] % (Auto) 9.4, Eos % (Auto) 0.9, Baso % (Auto) 0.2, Absolute Neuts (auto) 4.9, Total Counted Not Reportable 05/28/18 10:30: Sodium 139, Potassium 3.8, Chloride 103, Carbon Dioxide 29.0, Anion Gap 7, BUN 10, Creatinine 0.72, Est GFR (MDRD) Af Amer 138, Est GFR (MDRD) Non-Af 114, BUN/Creatinine Ratio 13.8, Glucose 112 H, Calcium 8.4 L, Total Bilirubin 0.50, Troponin I 1.060 H* 05/28/18 10:30: Lactic Acid 0.9 05/28/18 10:30: D-Dimer Quant (PE/DVT) 0.84 H* 05/28/18 13:38: Troponin I 1.590 H* 05/28/18 14:57: Urine Color Yellow, Urine Clarity Clear, Urine pH 8.0, Ur Specific [place] 1.010, Urine Protein Negative, Urine Glucose (UA) Normal, Urine Ketones 5 H, Urine Occult Blood Negative, Urine Nitrite Negative, Urine Bilirubin Negative, Urine Urobilinogen Normal, Ur Leukocyte Esterase Negative, Urine RBC 0 SEEN, Urine WBC 0 SEEN Rhythm: Sinus rhythm; PVCs Assessment/Plan 1. Abnormal troponin I level compatible with non-ST segment elevation DC The patient has cardiovascular risk factors which is included hypertension as well as former tobacco use. He has abnormal troponin I levels compatible with a non-ST segment elevation DC. He has had an abdominal/pelvic CT scan which per the report demonstrated coronary artery calcification. Thus there is concern, despite all the absence of all the classic symptoms, that he has underlying CAD contributing to his objective findings. From a cardiac standpoint, based upon the aforementioned concerns, it was felt reasonable that he be treated medically for the possibility of an acute coronary syndrome/non-ST segment elevation DC as well as being considered for further evaluation with diagnostic cardiac catheterization. If this is unremarkable then he will need to be considered for non-CAD related issues contributing to elevated troponin I levels and potentially a type II event. This could include concerns of underlying postsurgical related thromboembolic disease. Thus it may not be unreasonable to screen for that not only with a d-dimer level but potentially venous Doppler studies and if need be chest CT scan. In the interim, his medical management can include not only antiplatelet therapy, beta-robert therapy, etc. but also anticoagulant therapy with IV heparin unless otherwise contraindicated. At the same time he does not appear to have evidence of other etiologies to plane his elevated troponin I levels such as underlying CVA, renal failure, sepsis syndrome, etc. 2. Hypertension The patient has a history of hypertension. He will need to continue medical management with adjustment as needed. 3. Status post cervical spine fusion The patient states that he has been healing well from his cervical spine fusion. He states he was given no contraindication to avoidance of any particular medications, etc. His case has been with internal medicine. They did not feel there was a contraindication to antiplatelet therapy or anticoagulant therapy. Thus this will be started based upon concerns of his underlying cardiovascular disease process. He will need to be monitored for any obvious hemorrhagic related events. 4. Abdominal discomfort The etiology of his abdominal discomfort is unclear. Certainly based upon concerns of cardiovascular disease or be concerns as to whether or not he could have peripheral arterial occlusive disease leading to episodes of abdominal ischemia/intestinal ischemia, etc. that may require further evaluation and care. However other non-peripheral vascular disease related etiologies will need to be evaluated as well. Thus he is pending evaluation by general surgery. Comment: The patient's case has been previously discussed with the [facility] emergency department staff and the [facility] hospitalist staff. This note was generated with [employer] software. It may contain incorrect words, spelling, and punctuation that were not noted in checking the note before signing.
--- NOTE | 2018-05-28 16:33 | CON.PCM_ITS ---
Problem List (1) NSTEMI (non-ST elevated myocardial infarction) Status: Acute (2) Hypertension Status: Chronic (3) S/P cervical spinal fusion Status: Acute (4) Abdominal pain Status: Acute Reason for Consult Date of Consultation: 05/28/18 History of Present Illness: The patient is a 68 year old white male with a past cardiovascular history which is included hypertension who is now status post cervical spine fusion therapy approximately 1 week ago and with ongoing abdominal discomfort. He presents for evaluation of abnormal troponin I levels compatible with a non-ST segment elevation IN. To the best of his knowledge she has no cardiovascular history other than his hypertension. He believes he underwent an exercise tolerance test/imaging study decades ago. He has never undergone invasive evaluation or care. He states his main concern has been, for the last several weeks, status post eating a fish sandwich from [employer], abdominal discomfort. He states this is progressively gotten worse. He notes at times his abdomen not only hurts but feels as if it is on fire . He states his bowel movements have changed from being very regular to irregular and having at times questionable color changes of his bowel movements as well as pencil thin bowel movements. He states he can feel nauseated. He has had vague shoulder discomfort which he has attributed to his previous cervical spine fusion procedure. He denies ongoing chest discomfort at this time. He has had no acute change in his respiratory status. He has had no episodes of near syncope or syncope. He presented based upon his normal discomfort. During his evaluation he had laboratory studies performed. A troponin I level was performed which was abnormal/elevated. It was repeated and continued to elevate. His ECG demonstrated sinus rhythm with an occasional PVC but no acute ECG changes. He had an abdominal/pelvic CT scan which suggested coronary artery calcification as well as peripheral atherosclerosis. He was subsequently placed in the PCU for further evaluation and care. Present time he states his main concern continues to be his abdominal discomfort. [] Past Medical History Allergies/Adverse Reactions: Allergies No Known Allergies Allergy (Verified 05/28/18 10:01) Home Medications: Ambulatory Orders Medication Instructions Recorded Finasteride [Proscar] 5 mg PO DAILY 05/05/18 Losartan Potassium 50 mg PO DAILY 05/05/18 Omeprazole Magnesium [Prilosec Otc] 20 mg PO DAILY 05/05/18 Past Medical History (Chronic Problems): Chronic Problems (Last Updated 11/24/17 @ 09:22 by Sylvia Garcia) Cervical neuropathy (Chronic) Cervical fusion surgery on 05/20/2018 Elevated troponin (Chronic) Hypertension (Chronic) Surgical History: no surgical history - *Family History Paternal History Items: No pertinent history Lives: Spouse/ Significant Other Smoking Status: Former smoker Tobacco Use: Cigarettes Alcohol: None Drugs: None Review of Systems - Review of Systems General: Denies: Fever, Night Sweats, Fatigue Cardiovascular: Reports: - - Shoulder discomfort. Denies: Chest Discomfort, Shortness of Breath, Orthopnea, PND, Peripheral Edema, Palpitations, Lightheadedness, Dizziness, Near Syncope, Syncope Respiratory: Denies: Cough, Sputum Production, Hemoptysis Gastrointestinal: Reports: Abdominal Discomfort, Nausea. Denies: Hematemesis, Hematochezia, Melena Genitourinary: Denies: Dysuria, Hematuria Skin: Denies: Rash Subjectve: Is a 68-year-old white male who appears to be resting comfortably at the moment in no acute distress. Objective: Vital Signs Temp Pulse Resp BP Pulse Ox 98.5 F 87 16 128/74 H 95 05/28/18 12:50 05/28/18 13:07 05/28/18 12:50 05/28/18 12:50 05/28/18 12:50 Oxygen Delivery Method Room Air Weight: 178 lb 2.136 oz Body Mass Index (BMI) 23.5 General: Awake, Alert, Oriented x 3, Cooperative, No Acute Distress HEENT: Atraumatic, Normocephalic, PERRL, EOMI, Sclera Non Icteric Oral: Moist Mucosa Neck: Supple, Good ROM, No JVD Lungs: Clear to auscultation Cardiovascular: Regular Rhythm, Premature Ectopic Beats, Normal S1, Normal S2 Vascular: No Carotid Bruits Abdomen: Bowel Sounds Present, Soft, - - Positive diffuse tenderness Extremities: No Cyanosis, No Clubbing, No edema Neurological: No Focal Motor or Sensory Deficit Psych/Mental Status: Appropriate, Normal Affect 05/28/18 10:30: WBC 6.6, RBC 4.94, Hgb 14.4, Hct 42.7, MCV 86.4, MCH 29.1, MCHC 33.7, RDW 12.7, RDW Differential 40.3, Plt Count 243, MPV 9.0, Immature Gran % (Auto) 0.000, Neut % (Auto) 74.3 H, Lymph % (Auto) 15.2 L, [place] % (Auto) 9.4, Eos % (Auto) 0.9, Baso % (Auto) 0.2, Absolute Neuts (auto) 4.9, Total Counted Not Reportable 05/28/18 10:30: Sodium 139, Potassium 3.8, Chloride 103, Carbon Dioxide 29.0, Anion Gap 7, BUN 10, Creatinine 0.72, Est GFR (MDRD) Af Amer 138, Est GFR (MDRD) Non-Af 114, BUN/Creatinine Ratio 13.8, Glucose 112 H, Calcium 8.4 L, Total Bilirubin 0.50, Troponin I 1.060 H* 05/28/18 10:30: Lactic Acid 0.9 05/28/18 10:30: D-Dimer Quant (PE/DVT) 0.84 H* 05/28/18 13:38: Troponin I 1.590 H* 05/28/18 14:57: Urine Color Yellow, Urine Clarity Clear, Urine pH 8.0, Ur Specific [place] 1.010, Urine Protein Negative, Urine Glucose (UA) Normal, Urine Ketones 5 H, Urine Occult Blood Negative, Urine Nitrite Negative, Urine Bilirubin Negative, Urine Urobilinogen Normal, Ur Leukocyte Esterase Negative, Urine RBC 0 SEEN, Urine WBC 0 SEEN Rhythm: Sinus rhythm; PVCs Assessment/Plan 1. Abnormal troponin I level compatible with non-ST segment elevation IN The patient has cardiovascular risk factors which is included hypertension as well as former tobacco use. He has abnormal troponin I levels compatible with a non-ST segment elevation IN. He has had an abdominal/pelvic CT scan which per the report demonstrated coronary artery calcification. Thus there is concern, despite all the absence of all the classic symptoms, that he has underlying CAD contributing to his objective findings. From a cardiac standpoint, based upon the aforementioned concerns, it was felt reasonable that he be treated medically for the possibility of an acute coronary syndrome/non-ST segment elevation IN as well as being considered for further evaluation with diagnostic cardiac catheterization. If this is unremarkable then he will need to be considered for non-CAD related issues contributing to elevated troponin I levels and potentially a type II event. This could include concerns of underlying postsurgical related thromboembolic disease. Thus it may not be unreasonable to screen for that not only with a d-dimer level but potentially venous Doppler studies and if need be chest CT scan. In the interim, his medical management can include not only antiplatelet therapy, beta-robert therapy, etc. but also anticoagulant therapy with IV heparin unless otherwise contraindicated. At the same time he does not appear to have evidence of other etiologies to plane his elevated troponin I levels such as underlying CVA, renal failure, sepsis syndrome, etc. 2. Hypertension The patient has a history of hypertension. He will need to continue medical management with adjustment as needed. 3. Status post cervical spine fusion The patient states that he has been healing well from his cervical spine fusion. He states he was given no contraindication to avoidance of any particular medications, etc. His case has been with internal medicine. They did not feel there was a contraindication to antiplatelet therapy or anticoagulant therapy. Thus this will be started based upon concerns of his underlying cardiovascular disease process. He will need to be monitored for any obvious hemorrhagic related events. 4. Abdominal discomfort The etiology of his abdominal discomfort is unclear. Certainly based upon concerns of cardiovascular disease or be concerns as to whether or not he could have peripheral arterial occlusive disease leading to episodes of abdominal ischemia/intestinal ischemia, etc. that may require further evaluation and care. However other non-peripheral vascular disease related etiologies will need to be evaluated as well. Thus he is pending evaluation by general surgery. Comment: The patient's case has been previously discussed with the [facility] emergency department staff and the [facility] hospitalist staff. This note was generated with [employer] software. It may contain incorrect words, spelling, and punctuation that were not noted in checking the note before signing.
[2018-05-28] MEDS: Heparin Injection (Vial) 5,000 UNIT/ML VIAL 5000 UNIT IV (17:02)
[2018-05-28] MEDS: Clopidogrel Bisulfate 300 MG Tablet PO (17:02)
[2018-05-28] MEDS: HEPARIN/D5w 25,000 UNITS 25,000 UNITS/250 ML IV.SOLN. 11 UNITS IV (17:06)
[2018-05-28 17:29] LABS: International Normalized Ratio 1.1; Prothrombin Time (Protime)PT. 14.1 SECONDS (11.7-14.9)
[2018-05-28 17:30] LABS: Partial Thromboplast Time 26.9 Seconds (24.1-36.2)
--- NOTE | 2018-05-28 20:22 | PCM.CONS.GEN ---
Reason for Consult Date of Consultation: 05/28/18 History of Present Illness: The patient is a 68 year old M with approximately two-month history of abdominal pain of unknown etiology. I had seen the patient and past for lipomas and an inguinal hernia repair approximately one year previously. For the past few months, the patient is noted abdominal distention, abdominal discomfort and a feeling of burning in the abdomen worsened after eating foods. He denies black tarry stools, blood in stools, nausea or vomiting. The symptoms seem to be worsening. He has lost, he states 20 pounds. he was seen by Dr. Becker who recommended small bowel follow-through. This was unremarkable. The family tells me that Dr. Becker is now planning to perform upper and lower endoscopy. the patient had worsening complaints of abdominal distention along with a feeling of burning in the upper abdomen. He denied true chest pain or other symptomatology. In the emergency department he was noted to have elevated troponins. He is currently admitted on IV heparin having been seen by Dr. Murcia - cardiology with plans for cardiac catheterization and cardiac workup tomorrow. I was contacted by Dr. Sotomayor in the emergency department as the family is requesting my input given his abdominal symptoms. CT scan of the abdomen pelvis was obtained. This demonstrated no specific abnormalities. I reviewed the CT scan and agree that I see no specific abnormalities to explain his constellation of abdominal symptoms. stool for occult blood and stool for lactoferrin are negative. He had undergone colonoscopy in [address] Joseph Anguiano and was found to have a few diverticula without other abnormalities. he has not had previous upper endoscopy. Past Medical History Past Medical History (Chronic Problems): Chronic Problems (Last Updated 11/24/17 @ 09:22 by Sylvia Garcia) Cervical neuropathy (Chronic) Cervical fusion surgery on 05/20/2018 Elevated troponin (Chronic) Hypertension (Chronic) Medical History: Medical History (Last Updated 11/24/17 @ 09:22 by Sylvia Garcia) HTN (hypertension) I10 Allergies No Known Allergies Allergy (Verified 05/28/18 10:01) Home Medications: Ambulatory Orders Medication Instructions Recorded Finasteride [Proscar] 5 mg PO DAILY 05/05/18 Losartan Potassium 50 mg PO DAILY 05/05/18 Omeprazole Magnesium [Prilosec Otc] 20 mg PO DAILY 05/05/18 Surgical History: no surgical history, herniorrhaphy, - - cervical fusion in 1 week previously Lives: Spouse/ Significant Other Smoking Status: Former smoker Tobacco Use: Cigarettes Alcohol: None Drugs: None - *Family History Paternal History Items: No pertinent history Patient Problems: Active and Suspected Problems (Last Reviewed 11/24/17 @ 09:22 by Sylvia Garcia) Abdominal pain (Acute) NSTEMI (non-ST elevated myocardial infarction) (Acute) S/P cervical spinal fusion (Acute) - Physical Exam General: Alert, Oriented x3, Cooperative Lungs: Clear to auscultation, Normal air movement Cardiovascular: Regular rate, No murmurs Abdomen: Bowel Sounds Present, Soft, Tender - mild diffusely with mild distention Vital Signs Temp Pulse Resp BP Pulse Ox 98.3 F 85 16 132/84 H 96 05/28/18 18:50 05/28/18 19:00 05/28/18 18:50 05/28/18 18:50 05/28/18 18:50 Oxygen Delivery Method Room Air Weight: 80.8 kg Body Mass Index (BMI) 23.5 Intake and Output for Last 24 Hours 05/26/18 05/27/18 05/28/18 23:59 23:59 23:59 Intake Total 713.5 / 713.5 Balance 713.5 / 713.5 Microbiology Past 72 Hours 05/28/18 14:57 Stool Occult Blood (SOILA) - Final Stool 05/28/18 14:57 Stool Lactoferrin - Final Stool Laboratory Tests Past 24 Hrs 05/28/18 05/28/18 05/28/18 10:30 10:30 10:30 WBC 6.6 RBC 4.94 Hgb 14.4 Hct 42.7 MCV 86.4 MCH 29.1 MCHC 33.7 RDW 12.7 RDW Differential 40.3 Plt Count 243 MPV 9.0 Immature Gran % (Auto) 0.000 Neut % (Auto) 74.3 H Lymph % (Auto) 15.2 L [place] % (Auto) 9.4 Eos % (Auto) 0.9 Baso % (Auto) 0.2 Absolute Neuts (auto) 4.9 Absolute Lymphs (auto) 1.00 Total Counted Not Reportable PT INR APTT D-Dimer Quant (PE/DVT) Sodium 139 Potassium 3.8 Chloride 103 Carbon Dioxide 29.0 Anion Gap 7 BUN 10 Creatinine 0.72 Estim Creat Clear Calc 77.68 Est GFR (MDRD) Af Amer 138 Est GFR (MDRD) Non-Af 114 BUN/Creatinine Ratio 13.8 Glucose 112 H Lactic Acid 0.9 Calcium 8.4 L Total Bilirubin 0.50 AST 27 ALT 38 Alkaline Phosphatase 109 Troponin I 1.060 H* Total Protein 6.9 Albumin 3.0 L Globulin 3.9 Albumin/Globulin Ratio 0.8 L Lipase 230 Urine Color Urine Clarity Urine pH Ur Specific [place] Urine Protein Urine Glucose (UA) Urine Ketones Urine Occult Blood Urine Nitrite Urine Bilirubin Urine Urobilinogen Ur Leukocyte Esterase Urine RBC Urine WBC Ur Squamous Epith Cells Urine Bacteria Urine Mucus Stool Neutral Fats Stool Total Fats IgA Tiss Transglutamin IgG Tiss Transglutamin IgA Anti-Gliadin IgG Ab Anti-Gliadin IgA Ab 05/28/18 05/28/18 05/28/18 10:30 13:38 13:38 WBC RBC Hgb Hct MCV MCH MCHC RDW RDW Differential Plt Count MPV Immature Gran % (Auto) Neut % (Auto) Lymph % (Auto) [place] % (Auto) Eos % (Auto) Baso % (Auto) Absolute Neuts (auto) Absolute Lymphs (auto) Total Counted PT INR APTT D-Dimer Quant (PE/DVT) 0.84 H* Sodium Potassium Chloride Carbon Dioxide Anion Gap BUN Creatinine Estim Creat Clear Calc Est GFR (MDRD) Af Amer Est GFR (MDRD) Non-Af BUN/Creatinine Ratio Glucose Lactic Acid Calcium Total Bilirubin AST ALT Alkaline Phosphatase Troponin I 1.590 H* Total Protein Albumin Globulin Albumin/Globulin Ratio Lipase Urine Color Urine Clarity Urine pH Ur Specific [place] Urine Protein Urine Glucose (UA) Urine Ketones Urine Occult Blood Urine Nitrite Urine Bilirubin Urine Urobilinogen Ur Leukocyte Esterase Urine RBC Urine WBC Ur Squamous Epith Cells Urine Bacteria Urine Mucus Stool Neutral Fats Stool Total Fats IgA Pending Tiss Transglutamin IgG Pending Tiss Transglutamin IgA Pending Anti-Gliadin IgG Ab Pending Anti-Gliadin IgA Ab Pending 05/28/18 05/28/18 05/28/18 14:57 14:57 17:00 WBC RBC Hgb Hct MCV MCH MCHC RDW RDW Differential Plt Count MPV Immature Gran % (Auto) Neut % (Auto) Lymph % (Auto) [place] % (Auto) Eos % (Auto) Baso % (Auto) Absolute Neuts (auto) Absolute Lymphs (auto) Total Counted PT INR APTT D-Dimer Quant (PE/DVT) Sodium Potassium Chloride Carbon Dioxide Anion Gap BUN Creatinine Estim Creat Clear Calc Est GFR (MDRD) Af Amer Est GFR (MDRD) Non-Af BUN/Creatinine Ratio Glucose Lactic Acid Calcium Total Bilirubin AST ALT Alkaline Phosphatase Troponin I 1.250 H* Total Protein Albumin Globulin Albumin/Globulin Ratio Lipase Urine Color Yellow Urine Clarity Clear Urine pH 8.0 Ur Specific [place] 1.010 Urine Protein Negative Urine Glucose (UA) Normal Urine Ketones 5 H Urine Occult Blood Negative Urine Nitrite Negative Urine Bilirubin Negative Urine Urobilinogen Normal Ur Leukocyte Esterase Negative Urine RBC 0 SEEN Urine WBC 0 SEEN Ur Squamous Epith Cells 0 SEEN Urine Bacteria 0 SEEN Urine Mucus 0 SEEN Stool Neutral Fats Pending Stool Total Fats Pending IgA Tiss Transglutamin IgG Tiss Transglutamin IgA Anti-Gliadin IgG Ab Anti-Gliadin IgA Ab 05/28/18 17:00 WBC RBC Hgb Hct MCV MCH MCHC RDW RDW Differential Plt Count MPV Immature Gran % (Auto) Neut % (Auto) Lymph % (Auto) [place] % (Auto) Eos % (Auto) Baso % (Auto) Absolute Neuts (auto) Absolute Lymphs (auto) Total Counted PT 14.1 INR 1.1 APTT 26.9 D-Dimer Quant (PE/DVT) Sodium Potassium Chloride Carbon Dioxide Anion Gap BUN Creatinine Estim Creat Clear Calc Est GFR (MDRD) Af Amer Est GFR (MDRD) Non-Af BUN/Creatinine Ratio Glucose Lactic Acid Calcium Total Bilirubin AST ALT Alkaline Phosphatase Troponin I Total Protein Albumin Globulin Albumin/Globulin Ratio Lipase Urine Color Urine Clarity Urine pH Ur Specific [place] Urine Protein Urine Glucose (UA) Urine Ketones Urine Occult Blood Urine Nitrite Urine Bilirubin Urine Urobilinogen Ur Leukocyte Esterase Urine RBC Urine WBC Ur Squamous Epith Cells Urine Bacteria Urine Mucus Stool Neutral Fats Stool Total Fats IgA Tiss Transglutamin IgG Tiss Transglutamin IgA Anti-Gliadin IgG Ab Anti-Gliadin IgA Ab Assessment/Plan All Active Problems (Last Reviewed 11/24/17 @ 09:22 by Sylvia Garcia) Abdominal pain (Acute) NSTEMI (non-ST elevated myocardial infarction) (Acute) S/P cervical spinal fusion (Acute) abdominal symptoms, bloating, weight loss, anorexia, early satiety, unknown etiology, now questionable NSTEMI The patient will be undergoing cardiac evaluation in the morning. based on those results, my understanding is Dr. Becker's plan to perform upper and lower endoscopy. I agree that is the next appropriate step with biopsies to rule out celiac, microscopic colitis, and other rare etiologies. 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 I will be out of town for the next 2 weeks. I'm happy to have the patient follow-up with me as an outpatient as needed.
[2018-05-28] MEDS: Metoprolol Tartrate 25 MG Tablet PO (20:47)
[2018-05-28] MEDS: Zolpidem Tartrate 5 MG Tablet PO (20:49)
[2018-05-28 23:50] LABS: International Normalized Ratio 1.1; Prothrombin Time (Protime)PT. 14.2 SECONDS (11.7-14.9)
[2018-05-28 23:51] LABS: Partial Thromboplast Time 48.3 Seconds (24.1-36.2)
[2018-05-29] VITALS (24 sets, daily range): BP systolic 118–154; BP diastolic 54–100; PULSE 71–104; RESP 14–22; TEMP 36.7–36.9; O2SAT 96–99; BMI 23.5
[2018-05-29] MEDS: Heparin Injection (Vial) 5,000 UNIT/ML VIAL IV (00:03)
[2018-05-29] MEDS: 0.9% Normal Saline 1,000 ML 125 ML IV ×3 (00:04→18:53)
[2018-05-29 00:05] LABS: Magnesium 2.1 mg/dL (1.6-2.6)
--- NOTE | 2018-05-29 04:00 | RAD_ITS ---
STUDY: X-RAY CHEST REASON FOR EXAM: Male, 68 years old. Heart catheterization protocol. TECHNIQUE: Single AP portable view of the chest. COMPARISON: CT scan abdomen and pelvis 05/28/2018. FINDINGS: The lungs are clear and expanded. There is no demonstrated pleural abnormality. Normal size heart. Normal mediastinum and benjie. Normal visualized pulmonary arteries. Normal visualized aortic arch and descending thoracic aorta. There are degenerative changes of the visualized thoracic spine. There are postsurgical changes in the right shoulder. There is no demonstrated abnormality of the visualized soft tissue structures of the upper abdomen. RAD/Chest 1 View IMPRESSION: No evidence for acute cardiopulmonary pathology. Electronically Signed: Juni Moreau MD at 4:52 EDT , Service support ,
--- NOTE | 2018-05-29 04:00 | EKG12_ITS ---
Test Reason : AM Blood Pressure : / mmHG Vent. Rate : 077 BPM Atrial Rate : 077 BPM P-R Int : 144 ms QRS Dur : 086 ms QT Int : 406 ms P-R-T Axes : 077 003 055 degrees QTc Int : 459 ms Normal sinus rhythm Normal ECG When compared with ECG of 28-MAY-2018 15:23, MANUAL COMPARISON REQUIRED, DATA IS UNCONFIRMED Confirmed by ELVI BARTON, BHARATH ([id number]), electronic news gathering editor IESHA SMILEY ([id number]) on 06/03/2018 3:47:41 PM Referred By: Jose Antonio Alegria Confirmed By:BHARATH BOLES MD
[2018-05-29] MEDS: Ondansetron 4 MG/2 ML Vial IV (04:08)
[2018-05-29] MEDS: 0.9% NaCl Peripheral Flush Adult/Peds IV ×2 (04:08→04:37)
[2018-05-29] MEDS: Morphine 2 MG/ML Syringe IV ×2 (04:36→12:06)
[2018-05-29 05:50] LABS: Absolute Lymphocyte Count 1.44 X10^3/ul (0.83-4.51); Absolute Neutrophil Count 3.6 X10^3/uL (2.0-7.7); Basophil# 0.02 X10^3/uL; Basophil% 0.3 % (0-1); Eosinophil# 0.12 X10^3/uL; Hematocrit 39.2 % (40-54); Hemoglobin 13.4 g/dl (13.0-16.5); Lymphocyte # 1.44 X10^3/ul (4.0); Lymphocyte % 24.6 % (19-41); Mean Corp Hgb Conc 34.2 g/gl (32-36); Mean Corpuscular Hgb 29.6 pg (27.0-32.0); Mean Corpuscular Volume 86.5 fL (80-94); Monocyte# 0.62 X10^3/uL; Monocyte% 10.6 % (0-10); Neutrophil # 3.64 X10^3/uL (2.7-7.7); Neutrophil % 62.2 % (47-70); Platelet Count 283 K/mm3 (150-450); RBC Distribution Width CV 12.5 % (11.6-14.6); RBC Distribution Width SD 39.2 fl (35.1-43.9); Red Blood Count 4.53 M/mm3 (4.6-6.2); White Blood Count 5.9 K/mm3 (4.4-11.0)
[2018-05-29 05:53] LABS: Partial Thromboplast Time 45.2 Seconds (24.1-36.2)
[2018-05-29 06:06] LABS: POSITIVE COUNT NO; POSITIVE DIFFERENTIAL NO; POSITIVE MORPHOLOGY NO
[2018-05-29 06:08] LABS: ALB/GLOB Ratio 0.8 RATIO (0.9-2.4); AST(SGOT) 19 U/L (15-37); Alanine Aminotransfer ALT/SGPT 33 U/L (16-61); Albumin, Serum 2.6 g/dL (3.2-5.0); Alkaline Phosphatase 90 U/L (45-117); Anion Gap 10 (5-15); BUN 12 mg/dL (7-18); BUN/Creat Ratio 17.4 RATIO (10-20); Calcium,Total 8.3 mg/dL (8.5-10.1); Chloride 106 mmol/L (98-107); Cholesterol 125 mg/dL (200); Creatinine, Serum 0.69 mg/dL (0.70-1.30); EST Glomerular Filtration Rate 121 mL/min (>60); Est Glom Filt Rate - Afr Amer 146 mL/min (>60); Estimated Creatinine Clearance 77.68 ml/min; Globulin 3.4 g/dL (2.2-4.2); Glucose 99 mg/dL (74-106); High Density Lipoprotein 29 mg/dL; Sodium Level 141 mmol/L (136-145); Thyroid Stim Hormone (TSH) 0.31 uIU/mL (0.358-3.74); Triglycerides 128 mg/dL; Very Low Density Lipoprotein 26 mg/dL (5-40)
[2018-05-29] MEDS: Clopidogrel Bisulfate 75 MG Tablet PO (06:12)
[2018-05-29] MEDS: Metoprolol Tartrate 25 MG Tablet PO ×2 (06:12→21:09)
[2018-05-29 06:13] LABS: International Normalized Ratio 1.1; Prothrombin Time (Protime)PT. 14.3 SECONDS (11.7-14.9)
[2018-05-29] MEDS: Aspirin E.C. 81 MG Tablet PO (06:13)
[2018-05-29] MEDS: Mag Hydrox/Al Hydrox/Simeth 30 ML UDC PO (06:27)
--- NOTE | 2018-05-29 08:32 | NURSING ---
Called report to Jael DUMONT in ICU
--- NOTE | 2018-05-29 08:41 | PCM.PN.CARD ---
Subjectve: The patient has had ongoing abdominal discomfort and frequent loose bowel movements. He is being evaluated by general surgery. Infectious disease sample/cultures have been sent. In the interim he is undergone continued cardiac evaluation based upon his symptoms, elevated troponin I levels, etc. This has included a diagnostic cardiac catheterization performed this a.m. He was found to have evidence of coronary calcification and angiographically significant appearing coronary artery disease especially involving the LCx system and to a somewhat lesser degree the distal RCA system. His overall LV systolic function appeared to be preserved. Status post review of his case and consultation with interventional cardiology it was elected to proceed with LCx PCI. Also, consideration will be given to FFR of the RCA system versus a future pharmacologic stress nuclear imaging study-to evaluate RCA physiology and the need for additional RCA revascularization. This is being orchestrated by Dr. Delgado. Objective: Vital Signs Temp Pulse Resp BP Pulse Ox 98.2 F 87 16 123/69 H 96 05/29/18 06:07 05/29/18 07:02 05/29/18 06:07 05/29/18 06:07 05/29/18 06:07 Oxygen Delivery Method Room Air Weight: 178 lb 2.136 oz Body Mass Index (BMI) 23.5 Intake and Output for Last 24 Hours 05/27/18 05/28/18 05/29/18 23:59 23:59 23:59 Intake Total 1259.5 / 1259.5 741 / 741 Balance 1259.5 / 1259.5 741 / 741 General: Awake, Alert, Oriented x 3, Cooperative HEENT: Atraumatic, Normocephalic, PERRL, EOMI, Sclera Non Icteric Oral: Moist Mucosa Neck: Supple, Good ROM, No JVD Lungs: Clear to auscultation Cardiovascular: Regular Rhythm, Premature Ectopic Beats, Normal S1, Normal S2 Abdomen: Bowel Sounds Present, Soft, - - Diffuse tenderness Extremities: No edema Neurological: No Focal Motor or Sensory Deficit 05/28/18 10:30: WBC 6.6, RBC 4.94, Hgb 14.4, Hct 42.7, MCV 86.4, MCH 29.1, MCHC 33.7, RDW 12.7, RDW Differential 40.3, Plt Count 243, MPV 9.0, Immature Gran % (Auto) 0.000, Neut % (Auto) 74.3 H, Lymph % (Auto) 15.2 L, [place] % (Auto) 9.4, Eos % (Auto) 0.9, Baso % (Auto) 0.2, Absolute Neuts (auto) 4.9, Total Counted Not Reportable 05/28/18 10:30: Sodium 139, Potassium 3.8, Chloride 103, Carbon Dioxide 29.0, Anion Gap 7, BUN 10, Creatinine 0.72, Est GFR (MDRD) Af Amer 138, Est GFR (MDRD) Non-Af 114, BUN/Creatinine Ratio 13.8, Glucose 112 H, Calcium 8.4 L, Total Bilirubin 0.50, Troponin I 1.060 H* 05/28/18 10:30: Lactic Acid 0.9 05/28/18 10:30: D-Dimer Quant (PE/DVT) 0.84 H* 05/28/18 13:38: Troponin I 1.590 H* 05/28/18 14:57: Urine Color Yellow, Urine Clarity Clear, Urine pH 8.0, Ur Specific [place] 1.010, Urine Protein Negative, Urine Glucose (UA) Normal, Urine Ketones 5 H, Urine Occult Blood Negative, Urine Nitrite Negative, Urine Bilirubin Negative, Urine Urobilinogen Normal, Ur Leukocyte Esterase Negative, Urine RBC 0 SEEN, Urine WBC 0 SEEN 05/28/18 17:00: Troponin I 1.250 H* 05/28/18 17:00: PT 14.1, INR 1.1, APTT 26.9 05/28/18 17:00: Magnesium 2.1 05/28/18 23:10: PT 14.2, INR 1.1, APTT 48.3 H 05/29/18 05:34: Sodium 141, Potassium 4.0, Chloride 106, Carbon Dioxide 25.0, Anion Gap 10, BUN 12, Creatinine 0.69 L, Est GFR (MDRD) Af Amer 146, Est GFR (MDRD) Non-Af 121, BUN/Creatinine Ratio 17.4, Glucose 99, Calcium 8.3 L, Total Bilirubin 0.40, Triglycerides 128, Cholesterol 125, LDL Cholesterol 70, VLDL Cholesterol 26, HDL Cholesterol 29 L 05/29/18 05:34: WBC 5.9, RBC 4.53 L, Hgb 13.4, Hct 39.2 L, MCV 86.5, MCH 29.6, MCHC 34.2, RDW 12.5, RDW Differential 39.2, Plt Count 283, MPV 9.0, Immature Gran % (Auto) 0.300, Neut % (Auto) 62.2, Lymph % (Auto) 24.6, [place] % (Auto) 10.6 H, Eos % (Auto) 2.0, Baso % (Auto) 0.3, Absolute Neuts (auto) 3.6, Total Counted Not Reportable 05/29/18 05:34: PT 14.3, INR 1.1 05/29/18 05:34: APTT 45.2 H Rhythm: Sinus rhythm; PVCs EKG: This rhythm; no acute ECG changes Medical Necessity - Tobacco Use Smoking Status: Former smoker Tobacco Use: Cigarettes Assessment/Plan 1. Abnormal troponin I level compatible with non-ST segment elevation SD The patient has cardiovascular risk factors which is included hypertension as well as former tobacco use. He has abnormal troponin I levels compatible with a non-ST segment elevation SD. His troponin I levels are decreasing. He has had an abdominal/pelvic CT scan which per the report demonstrated coronary artery calcification. He is now undergone diagnostic cardiac catheterization. The preliminary results are as noted above. He will continue medical management. He is going to proceed with LCx PCI under the direction of Dr. Delgado. Consideration is also being given to additional evaluation of the RCA physiology with an FFR versus a pharmacologic stress nuclear imaging study. If this were abnormal in the RCA distribution that he would need to be considered for additional RCA PCI. He will need continued outpatient cardiovascular follow-up as well. 2. Hypertension The patient has a history of hypertension. He will need to continue medical management with adjustment as needed. 3. Status post cervical spine fusion The patient states that he has been healing well from his cervical spine fusion. He states he was given no contraindication to avoidance of any particular medications, etc. His case has been with internal medicine. They did not feel there was a contraindication to antiplatelet therapy or anticoagulant therapy. Thus this will be started based upon concerns of his underlying cardiovascular disease process. He will need to be monitored for any obvious hemorrhagic related events. 4. Abdominal discomfort The etiology of his abdominal discomfort is unclear. He has been evaluated by Dr. Simon. Based upon good Dr. Simon's report there is been no definitive etiology to explain his abdominal discomfort based upon his abdominal/pelvic CT scan. He is being considered for future endoscopy procedures by gastroenterology. The interim he is undergoing infectious disease evaluation. Comment: The above was discussed with the patient, his spouse, and Dr. Delgado. This note was generated with [employer] dictation software. It may contain incorrect words, spelling, and punctuation that were not noted in checking the note before signing.
--- NOTE | 2018-05-29 11:02 | EKG12_ITS ---
Test Reason : Blood Pressure : / mmHG Vent. Rate : 076 BPM Atrial Rate : 076 BPM P-R Int : 150 ms QRS Dur : 084 ms QT Int : 396 ms P-R-T Axes : 062 -03 051 degrees QTc Int : 445 ms Normal sinus rhythm Normal ECG Confirmed by ELVI BARTON, BHARATH ([id number]), image editor IESHA SMILEY ([id number]) on 06/05/2018 3:50:43 PM Referred By: Jose Antonio Alegria Confirmed By:BHARATH BOLES MD
[2018-05-29] MEDS: 0.9% Normal Saline 1,000 ML 150 ML IV (12:10)
[2018-05-29 13:01] LABS: ACT Activated Clotting Time 224 sec (74-137)
[2018-05-29 13:01] LABS: ACT Activated Clotting Time 158 sec (74-137)
--- NOTE | 2018-05-29 13:40 | CRPHASE1 ---
Patient Data/Charges Surgeon:: González Delgado Refer Phase II:: Yes Phase II Referral:: [facility] Risk Factors/Lifestyle Smoking Status: Former smoker Hx Hypertension: Yes Height: 1.85 m Weight:: 80.739 kg BMI: 23.5 Laboratory Values: Cardiac Rehab Phase I Labs Triglycerides 128 mg/dL (-199) 05/29/18 05:34 Cholesterol 125 mg/dL (200) 05/29/18 05:34 LDL Cholesterol 70 mg/dL (0-130) 05/29/18 05:34 HDL Cholesterol 29 mg/dL (40-) L 05/29/18 05:34 Phase I Education Given On:: [place], Nutrition, Antiplatelet medication, CHF, Smoking cessation, Diabetes - Type I, Diabetes - Type II Knowledge of Condition:: Yes Hospital Course Presenting Symptoms:: CP, SOB Medical/Surgical History PTCA:: Yes Discharge/Home/Social Eval Discharge Disposition: Home Marital Status:
--- NOTE | 2018-05-29 13:43 | CRPHASE1_ITS ---
Patient Data/Charges Surgeon:: González Delgado Refer Phase II:: Yes Phase II Referral:: [facility] Risk Factors/Lifestyle Smoking Status: Former smoker Hx Hypertension: Yes Height: 1.85 m Weight:: 80.739 kg BMI: 23.5 Laboratory Values: Cardiac Rehab Phase I Labs Triglycerides 128 mg/dL (-199) 05/29/18 05:34 Cholesterol 125 mg/dL (200) 05/29/18 05:34 LDL Cholesterol 70 mg/dL (0-130) 05/29/18 05:34 HDL Cholesterol 29 mg/dL (40-) L 05/29/18 05:34 Phase I Education Given On:: [place], Nutrition, Antiplatelet medication, CHF, Smoking cessation, Diabetes - Type I, Diabetes - Type II Knowledge of Condition:: Yes Hospital Course Presenting Symptoms:: CP, SOB Medical/Surgical History PTCA:: Yes Discharge/Home/Social Eval Discharge Disposition: Home Marital Status:
--- NOTE | 2018-05-29 13:44 | CRPH1.INSTRU ---
General Education CAD and cardiac anatomy and function:: Patient communicates acknowledgment Explanation of diagnoses and procedures:: Patient communicates acknowledgment Sign/Symptoms of IA:: Patient communicates acknowledgment Antiplatelet therapy: Patient communicates acknowledgment Proper use of NTG-SL: Not instructed Emergency procedures and activation of EMS: Patient communicates acknowledgment Compliance of all prescribed medications: Patient communicates acknowledgment Smoking Recommendations Include:: Previous smoker; encourage continued cessation Nicotine/Smoking Response Code:: Patient communicates acknowledgment Dyslipidemia Dyslipidemia Response Code:: Patient communicates acknowledgment Overweight/Obesity Patient Overweight/Obesity Risk Factors Are:: BMI Normal [24-29 & > 65 years old] Overweight/Obesity:: Patient communicates acknowledgment Hypertension Recommendations Include:: Maintain BP <130/85, BP <130/80 if diabetic, DASH dietary guidelines, Decrease/maintain normal body weight, Moderation of ETOH Hypertension:: Patient communicates acknowledgment Heart Disease Heart Disease Response Code:: Patient communicates acknowledgment Diabetes Diabetes:: Patient communicates acknowledgment Metabolic Syndrome Metabolic Syndrome Response Code:: Patient communicates acknowledgment Sedentary Sedentary Response Code:: Patient communicates acknowledgment Stress Stress Response Code:: Patient communicates acknowledgment
--- NOTE | 2018-05-29 13:48 | CRPH1.INST_ITS ---
General Education CAD and cardiac anatomy and function:: Patient communicates acknowledgment Explanation of diagnoses and procedures:: Patient communicates acknowledgment Sign/Symptoms of PA:: Patient communicates acknowledgment Antiplatelet therapy: Patient communicates acknowledgment Proper use of NTG-SL: Not instructed Emergency procedures and activation of EMS: Patient communicates acknowledgment Compliance of all prescribed medications: Patient communicates acknowledgment Smoking Recommendations Include:: Previous smoker; encourage continued cessation Nicotine/Smoking Response Code:: Patient communicates acknowledgment Dyslipidemia Dyslipidemia Response Code:: Patient communicates acknowledgment Overweight/Obesity Patient Overweight/Obesity Risk Factors Are:: BMI Normal [24-29 & > 65 years old] Overweight/Obesity:: Patient communicates acknowledgment Hypertension Recommendations Include:: Maintain BP <130/85, BP <130/80 if diabetic, DASH dietary guidelines, Decrease/maintain normal body weight, Moderation of ETOH Hypertension:: Patient communicates acknowledgment Heart Disease Heart Disease Response Code:: Patient communicates acknowledgment Diabetes Diabetes:: Patient communicates acknowledgment Metabolic Syndrome Metabolic Syndrome Response Code:: Patient communicates acknowledgment Sedentary Sedentary Response Code:: Patient communicates acknowledgment Stress Stress Response Code:: Patient communicates acknowledgment
--- NOTE | 2018-05-29 15:20 | PCM.PN.HOSP ---
Patient Problems: Active and Suspected Problems (Last Reviewed 11/24/17 @ 09:22 by Sylvia Garcia) Abdominal pain (Acute) NSTEMI (non-ST elevated myocardial infarction) (Acute) S/P cervical spinal fusion (Acute) Subjective: Patient had loose bowel last night but was not watery but mucus. Started on clear liquid diet. Yesterday he had a PCI to right femoral access. No hematoma. Patient was seen by private investigator surveillance and surgeon. Vitals/I&O's: Vital Signs Temp Pulse Resp BP Pulse Ox 98.2 F 98 20 H 140/77 H 96 05/29/18 12:30 05/29/18 13:00 05/29/18 13:00 05/29/18 13:00 05/29/18 13:00 Oxygen Delivery Method Room Air Weight: 178 lb Body Mass Index (BMI) 23.5 Intake and Output for Last 24 Hours 05/27/18 05/28/18 05/29/18 23:59 23:59 23:59 Intake Total 1259.5 / 1259.5 891 / 891 Output Total 700 / 700 Balance 1259.5 / 1259.5 191 / 191 General: Alert, Oriented x3, Cooperative HEENT: Atraumatic, PERRLA, EOMI, Normocephalic Neck: Supple, No JVD, Negative Carotid Bruits Lungs: Clear to auscultation, No rhonchi, No wheeze, Diminished Cardiovascular: Regular rate, Regular Rhythm, Normal S1, Normal S2, No murmurs Abdomen: Bowel Sounds Present, Soft, Non-Distended, Hyperactive Bowel Sounds, Tender - Slight to mild tenderness in upper epigastrium on deep palpation. Extremities: No edema, Capillary Refill Less than 3 Seconds Skin: No rashes, No breakdown Musculoskeletal: No Tenderness to Palpation of Joints or Extremities Neurological: Cranial nerves II-XII grossly intact Psych/Mental Status: Normal Affect, Appropriate Microbiology Past 72 Hours 05/28/18 23:03 Stool Enteric Bacteriology - Final 05/29/18 07:28 Stool C. difficile DNA Amplification - Final 05/28/18 14:57 Stool Stool Occult Blood (SOILA) - Final 05/28/18 14:57 Stool Stool Lactoferrin - Final Laboratory Results 05/28/18 10:30: D-Dimer Quant (PE/DVT) 0.84 H* 05/28/18 14:57: Urine Color Yellow, Urine Clarity Clear, Urine pH 8.0, Ur Specific [place] 1.010, Urine Protein Negative, Urine Glucose (UA) Normal, Urine Ketones 5 H, Urine Occult Blood Negative, Urine Nitrite Negative, Urine Bilirubin Negative, Urine Urobilinogen Normal, Ur Leukocyte Esterase Negative, Urine RBC 0 SEEN, Urine WBC 0 SEEN, Ur Squamous Epith Cells 0 SEEN, Urine Bacteria 0 SEEN, Urine Mucus 0 SEEN 05/28/18 17:00: Troponin I 1.250 H* 05/28/18 17:00: PT 14.1, INR 1.1, APTT 26.9 05/28/18 17:00: Magnesium 2.1 05/28/18 23:03: Stool Neutral Fats Pending, Stool Total Fats Pending 05/28/18 23:10: PT 14.2, INR 1.1, APTT 48.3 H 05/29/18 05:34: Sodium 141, Potassium 4.0, Chloride 106, Carbon Dioxide 25.0, Anion Gap 10, BUN 12, Creatinine 0.69 L, Estim Creat Clear Calc 77.68, Est GFR (MDRD) Af Amer 146, Est GFR (MDRD) Non-Af 121, BUN/Creatinine Ratio 17.4, Glucose 99, Calcium 8.3 L, Total Bilirubin 0.40, AST 19, ALT 33, Alkaline Phosphatase 90, Total Protein 6.0 L, Albumin 2.6 L, Globulin 3.4, Albumin/Globulin Ratio 0.8 L, Triglycerides 128, Cholesterol 125, LDL Cholesterol 70, VLDL Cholesterol 26, HDL Cholesterol 29 L, TSH 0.31 L 05/29/18 05:34: WBC 5.9, RBC 4.53 L, Hgb 13.4, Hct 39.2 L, MCV 86.5, MCH 29.6, MCHC 34.2, RDW 12.5, RDW Differential 39.2, Plt Count 283, MPV 9.0, Immature Gran % (Auto) 0.300, Neut % (Auto) 62.2, Lymph % (Auto) 24.6, [place] % (Auto) 10.6 H, Eos % (Auto) 2.0, Baso % (Auto) 0.3, Absolute Neuts (auto) 3.6, Absolute Lymphs (auto) 1.44, Total Counted Not Reportable 05/29/18 05:34: PT 14.3, INR 1.1 05/29/18 05:34: APTT 45.2 H 05/29/18 08:51: Activated Clotting Time 158 H 05/29/18 09:15: Activated Clotting Time 224 H Current Medications Acetaminophen (Tylenol) 650 mg PO Q6H PRN PRN PRN Reason: Mild Pain (0-2/10) Aspirin (Ecotrin) 81 mg PO DAILY@0800 [facility] Last Admin: 05/29/18 06:13 Dose: 81 mg Atropine Sulfate () 0.5 mg IV UD PRN PRN Reason: HR <50 bpm Clopidogrel Bisulfate (Plavix) 75 mg PO DAILY [facility] Last Admin: 05/29/18 06:12 Dose: 75 mg Heparin Sodium (Beef Lung) (Heparin 500 Unit/5 Ml (100/Ml)) 500 unit IV UD PRN PRN Reason: HEPARIN FLUSH Heparin Sodium (Porcine) (Heparin Na) 0 unit IV UD PRN; Protocol Last Admin: 05/29/18 00:03 Dose: 1,000 unit Sodium Chloride () 1,000 mls @ 125 mls/hr IV .Q8H [facility] Last Admin: 05/29/18 06:31 Dose: 125 mls/hr Sodium Chloride () 1,000 mls @ 0 mls/hr IV .Q0M [facility] Sodium Chloride () 1,000 mls @ 150 mls/hr IV .Q6H40M [facility] Stop: 05/29/18 17:41 Last Admin: 05/29/18 12:10 Dose: 150 mls/hr Labetalol HCl (Trandate) 5 mg IV X1 PRN PRN Reason: SBP > 160 when pulling sheath Lorazepam (Ativan) 1 mg PO Q6H PRN PRN PRN Reason: BACK SPASMS/ANXIETY Metoclopramide HCl (Reglan) 5 mg IV Q6H PRN PRN Reason: NAUSEA/VOMITING Metoprolol Tartrate (Lopressor (Beta Cosme)) 25 mg PO BID [facility] Last Admin: 05/29/18 06:12 Dose: 25 mg Morphine Sulfate () 2 mg IV Q4H PRN PRN PRN Reason: Mild back pain (0-2/10) Last Admin: 05/29/18 12:06 Dose: 2 mg Nitroglycerin (Nitrostat) 0.4 mg SUBLINGUAL Q5M PRN PRN Reason: CHEST PAIN Nutritional Formula (Lactose Free) (Ensure Enlive) 120 ml PO 4X/DAY CLINT Last Admin: 05/29/18 14:40 Dose: Not Given Ondansetron HCl (Zofran) 4 mg IV Q6H PRN PRN PRN Reason: NAUSEA Last Admin: 05/29/18 04:08 Dose: 4 mg Sodium Chloride () 5 - 30 ml IV UD PRN PRN Reason: SALINE FLUSH Last Admin: 05/29/18 04:37 Dose: 10 ml Sodium Chloride () 500 ml IV BOLUS PRN PRN Reason: VASO-VAGAL PROTOCOL Zolpidem Tartrate (Ambien (Generic)) 5 mg PO QHS PRN PRN PRN Reason: SLEEP Last Admin: 05/28/18 20:49 Dose: 5 mg Medical Necessity - Tobacco Use Smoking Status: Former smoker Tobacco Use: Cigarettes Assessment/Plan All Active Problems (Last Reviewed 11/24/17 @ 09:22 by Sylvia Garcia) Abdominal pain (Acute) NSTEMI (non-ST elevated myocardial infarction) (Acute) S/P cervical spinal fusion (Acute) The patient is a 68 year old M with history of hypertension and cervical neuropathy status post cervical spine fusion about a week ago at [facility] came to ER with abdominal pain for about 3 months. His pain is constant, generalized but worse in upper abdomen without radiation to chest. Patient has nausea and food makes the abdominal pain worse and has loss of appetite. Patient has lost weight about 7 pounds in last 3 months. Also complaining of pencil thin like stool and sometimes he has diarrhea alternating with constipation. Patient had right inguinal hernia repair by Dr. Simon in the past and would like to see him. Patient has seen Dr. Mcgee about 3 weeks ago and had small bowel follow-through series which showed normal visualized mucosal folds of jejunum and ileum with no demonstrated dilatation, stricture or masses of the small intestine. Normal motor pattern of colon. Prior to that, he had CT abdomen 05/05/2018 without contrast which reported single mildly dilated small bowel loop with air-fluid level in left midabdomen otherwise normal. He had multiple colonic diverticula. In ED, right upper quadrant sonogram was done and is reported normal. Lab tests are unremarkable except troponin came 1.06. EKG shows normal sinus rhythm with occasional PVCs no significant ST-T changes suggestive of ischemia. Initially, patient was admitted in PCU and then later transferred to ICU after PCI 1. Subacute/chronic abdominal pain, etiology unclear, probably malabsorption syndrome or chronic ischemic bowel disease: Patient had extensive abdominal imaging workup including CT abdomen, ultrasound and small bowel series as mentioned above. He also had about 3 times colonoscopy every 10 years starting at age 48 and last one about for 5 years ago and was told everything normal although no document available to corroborate that. Patient is being admitted on PCU. Started on clear liquid diet. Continue IV fluid. Stool studies ordered including lactoferrin, ova parasite, occult blood and C. difficile are negative. Stool for fecal fat celiac disease panel are pending. Dr. Simon advised CT abdomen with oral and IV contrast and showed no acute abnormality. Symptomatic management for nausea, abdominal pain. 2. NSTEMI with coronary artery disease in left circumflex and RCA: Serial troponins were high in the range of non-STEMI. Patient had cardiac cath and shows significant coronary atherosclerosis and left circumflex and RCA for which stenting was done. EF the same preserved. Echo was done and shows EF 40% with moderate global hypokinesis of left ventricle. Stage I diastolic dysfunction. Mild AR. Patient denies any previous cardiopulmonary history. EKG does not show ischemic changes. D-dimer is elevated: Patient already had contrast exposure for CT abdomen and then cardiac cath today. Therefore CT angiogram of chest was canceled. Venous Doppler shows no acute evidence of DVT in bilateral lower extremities. D-dimer probably elevated secondary to coronary atherosclerosis 3. Recent cervical spine fusion surgery: Dressing is dry. Patient had cervical fusion surgery in [facility] on 05/21/2018. Dressing change 4. Hypertension: Blood pressure is controlled. DVT prophylaxis: On heparin 5000 units twice daily. Microbiology Past 72 Hours 05/28/18 23:03 Stool Enteric Bacteriology - Final 05/29/18 07:28 Stool C. difficile DNA Amplification - Final 05/28/18 14:57 Stool Stool Occult Blood (SOILA) - Final 05/28/18 14:57 Stool Stool Lactoferrin - Final Laboratory Results 05/28/18 17:00: Magnesium 2.1 05/28/18 23:03: Stool Neutral Fats Pending, Stool Total Fats Pending 05/28/18 23:10: PT 14.2, INR 1.1, APTT 48.3 H 05/29/18 05:34: Sodium 141, Potassium 4.0, Chloride 106, Carbon Dioxide 25.0, Anion Gap 10, BUN 12, Creatinine 0.69 L, Estim Creat Clear Calc 77.68, Est GFR (MDRD) Af Amer 146, Est GFR (MDRD) Non-Af 121, BUN/Creatinine Ratio 17.4, Glucose 99, Calcium 8.3 L, Total Bilirubin 0.40, AST 19, ALT 33, Alkaline Phosphatase 90, Total Protein 6.0 L, Albumin 2.6 L, Globulin 3.4, Albumin/Globulin Ratio 0.8 L, Triglycerides 128, Cholesterol 125, LDL Cholesterol 70, VLDL Cholesterol 26, HDL Cholesterol 29 L, TSH 0.31 L 05/29/18 05:34: WBC 5.9, RBC 4.53 L, Hgb 13.4, Hct 39.2 L, MCV 86.5, MCH 29.6, MCHC 34.2, RDW 12.5, RDW Differential 39.2, Plt Count 283, MPV 9.0, Immature Gran % (Auto) 0.300, Neut % (Auto) 62.2, Lymph % (Auto) 24.6, [place] % (Auto) 10.6 H, Eos % (Auto) 2.0, Baso % (Auto) 0.3, Absolute Neuts (auto) 3.6, Absolute Lymphs (auto) 1.44, Total Counted Not Reportable 05/29/18 05:34: PT 14.3, INR 1.1 Clinical Impression(s) from Imaging Studies Gallbladder Ultrasound 05/28/18 10:22 IMPRESSION: Normal right upper quadrant ultrasound examination. Punctate nonobstructing right midpole stone Abdomen/Pelvis CT 05/28/18 11:45 IMPRESSION: No acute abnormality is seen. Code Visit Inpatient E&M: 33570 Subs Hosp L3
--- NOTE | 2018-05-29 15:32 | PN_ITS ---
Patient Problems: Active and Suspected Problems (Last Reviewed 11/24/17 @ 09:22 by Sylvia Garcia) Abdominal pain (Acute) NSTEMI (non-ST elevated myocardial infarction) (Acute) S/P cervical spinal fusion (Acute) Subjective: Patient had loose bowel last night but was not watery but mucus. Started on clear liquid diet. Yesterday he had a PCI to right femoral access. No hematoma. Patient was seen by learning center coordinator and surgeon. Vitals/I&O's: Vital Signs Temp Pulse Resp BP Pulse Ox 98.2 F 98 20 H 140/77 H 96 05/29/18 12:30 05/29/18 13:00 05/29/18 13:00 05/29/18 13:00 05/29/18 13:00 Oxygen Delivery Method Room Air Weight: 178 lb Body Mass Index (BMI) 23.5 Intake and Output for Last 24 Hours 05/27/18 05/28/18 05/29/18 23:59 23:59 23:59 Intake Total 1259.5 / 1259.5 891 / 891 Output Total 700 / 700 Balance 1259.5 / 1259.5 191 / 191 General: Alert, Oriented x3, Cooperative HEENT: Atraumatic, PERRLA, EOMI, Normocephalic Neck: Supple, No JVD, Negative Carotid Bruits Lungs: Clear to auscultation, No rhonchi, No wheeze, Diminished Cardiovascular: Regular rate, Regular Rhythm, Normal S1, Normal S2, No murmurs Abdomen: Bowel Sounds Present, Soft, Non-Distended, Hyperactive Bowel Sounds, Tender - Slight to mild tenderness in upper epigastrium on deep palpation. Extremities: No edema, Capillary Refill Less than 3 Seconds Skin: No rashes, No breakdown Musculoskeletal: No Tenderness to Palpation of Joints or Extremities Neurological: Cranial nerves II-XII grossly intact Psych/Mental Status: Normal Affect, Appropriate Microbiology Past 72 Hours 05/28/18 23:03 Stool Enteric Bacteriology - Final 05/29/18 07:28 Stool C. difficile DNA Amplification - Final 05/28/18 14:57 Stool Stool Occult Blood (SOILA) - Final 05/28/18 14:57 Stool Stool Lactoferrin - Final Laboratory Results 05/28/18 10:30: D-Dimer Quant (PE/DVT) 0.84 H* 05/28/18 14:57: Urine Color Yellow, Urine Clarity Clear, Urine pH 8.0, Ur Specific Hudson 1.010, Urine Protein Negative, Urine Glucose (UA) Normal, Urine Ketones 5 H, Urine Occult Blood Negative, Urine Nitrite Negative, Urine Bilirubin Negative, Urine Urobilinogen Normal, Ur Leukocyte Esterase Negative, Urine RBC 0 SEEN, Urine WBC 0 SEEN, Ur Squamous Epith Cells 0 SEEN, Urine Bacteria 0 SEEN, Urine Mucus 0 SEEN 05/28/18 17:00: Troponin I 1.250 H* 05/28/18 17:00: PT 14.1, INR 1.1, APTT 26.9 05/28/18 17:00: Magnesium 2.1 05/28/18 23:03: Stool Neutral Fats Pending, Stool Total Fats Pending 05/28/18 23:10: PT 14.2, INR 1.1, APTT 48.3 H 05/29/18 05:34: Sodium 141, Potassium 4.0, Chloride 106, Carbon Dioxide 25.0, Anion Gap 10, BUN 12, Creatinine 0.69 L, Estim Creat Clear Calc 77.68, Est GFR (MDRD) Af Amer 146, Est GFR (MDRD) Non-Af 121, BUN/Creatinine Ratio 17.4, Glucose 99, Calcium 8.3 L, Total Bilirubin 0.40, AST 19, ALT 33, Alkaline Phosphatase 90, Total Protein 6.0 L, Albumin 2.6 L, Globulin 3.4, Albumin/Globulin Ratio 0.8 L, Triglycerides 128, Cholesterol 125, LDL Cholesterol 70, VLDL Cholesterol 26, HDL Cholesterol 29 L, TSH 0.31 L 05/29/18 05:34: WBC 5.9, RBC 4.53 L, Hgb 13.4, Hct 39.2 L, MCV 86.5, MCH 29.6, MCHC 34.2, RDW 12.5, RDW Differential 39.2, Plt Count 283, MPV 9.0, Immature Gran % (Auto) 0.300, Neut % (Auto) 62.2, Lymph % (Auto) 24.6, Kershaw % (Auto) 10.6 H, Eos % (Auto) 2.0, Baso % (Auto) 0.3, Absolute Neuts (auto) 3.6, Absolute Lymphs (auto) 1.44, Total Counted Not Reportable 05/29/18 05:34: PT 14.3, INR 1.1 05/29/18 05:34: APTT 45.2 H 05/29/18 08:51: Activated Clotting Time 158 H 05/29/18 09:15: Activated Clotting Time 224 H Current Medications Acetaminophen (Tylenol) 650 mg PO Q6H PRN PRN PRN Reason: Mild Pain (0-2/10) Aspirin (Ecotrin) 81 mg PO DAILY@0800 [facility] Last Admin: 05/29/18 06:13 Dose: 81 mg Atropine Sulfate () 0.5 mg IV UD PRN PRN Reason: HR <50 bpm Clopidogrel Bisulfate (Plavix) 75 mg PO DAILY [facility] Last Admin: 05/29/18 06:12 Dose: 75 mg Heparin Sodium (Beef Lung) (Heparin 500 Unit/5 Ml (100/Ml)) 500 unit IV UD PRN PRN Reason: HEPARIN FLUSH Heparin Sodium (Porcine) (Heparin Na) 0 unit IV UD PRN; Protocol Last Admin: 05/29/18 00:03 Dose: 1,000 unit Sodium Chloride () 1,000 mls @ 125 mls/hr IV .Q8H [facility] Last Admin: 05/29/18 06:31 Dose: 125 mls/hr Sodium Chloride () 1,000 mls @ 0 mls/hr IV .Q0M [facility] Sodium Chloride () 1,000 mls @ 150 mls/hr IV .Q6H40M [facility] Stop: 05/29/18 17:41 Last Admin: 05/29/18 12:10 Dose: 150 mls/hr Labetalol HCl (Trandate) 5 mg IV X1 PRN PRN Reason: SBP > 160 when pulling sheath Lorazepam (Ativan) 1 mg PO Q6H PRN PRN PRN Reason: BACK SPASMS/ANXIETY Metoclopramide HCl (Reglan) 5 mg IV Q6H PRN PRN Reason: NAUSEA/VOMITING Metoprolol Tartrate (Lopressor (Beta Cosme)) 25 mg PO BID [facility] Last Admin: 05/29/18 06:12 Dose: 25 mg Morphine Sulfate () 2 mg IV Q4H PRN PRN PRN Reason: Mild back pain (0-2/10) Last Admin: 05/29/18 12:06 Dose: 2 mg Nitroglycerin (Nitrostat) 0.4 mg SUBLINGUAL Q5M PRN PRN Reason: CHEST PAIN Nutritional Formula (Lactose Free) (Ensure Enlive) 120 ml PO 4X/DAY [facility] Last Admin: 05/29/18 14:40 Dose: Not Given Ondansetron HCl (Zofran) 4 mg IV Q6H PRN PRN PRN Reason: NAUSEA Last Admin: 05/29/18 04:08 Dose: 4 mg Sodium Chloride () 5 - 30 ml IV UD PRN PRN Reason: SALINE FLUSH Last Admin: 05/29/18 04:37 Dose: 10 ml Sodium Chloride () 500 ml IV BOLUS PRN PRN Reason: VASO-VAGAL PROTOCOL Zolpidem Tartrate (Ambien (Generic)) 5 mg PO QHS PRN PRN PRN Reason: SLEEP Last Admin: 05/28/18 20:49 Dose: 5 mg Medical Necessity - Tobacco Use Smoking Status: Former smoker Tobacco Use: Cigarettes Assessment/Plan All Active Problems (Last Reviewed 11/24/17 @ 09:22 by Sylvia Garcia) Abdominal pain (Acute) NSTEMI (non-ST elevated myocardial infarction) (Acute) S/P cervical spinal fusion (Acute) The patient is a 68 year old M with history of hypertension and cervical neuropathy status post cervical spine fusion about a week ago at [facility] came to ER with abdominal pain for about 3 months. His pain is constant, generalized but worse in upper abdomen without radiation to chest. Patient has nausea and food makes the abdominal pain worse and has loss of appetite. Patient has lost weight about 7 pounds in last 3 months. Also complaining of pencil thin like stool and sometimes he has diarrhea alternating with constipation. Patient had right inguinal hernia repair by Dr. Simon in the past and would like to see him. Patient has seen Dr. Mcgee about 3 weeks ago and had small bowel follow-through series which showed normal visualized mucosal folds of jejunum and ileum with no demonstrated dilatation, stricture or masses of the small intestine. Normal motor pattern of colon. Prior to that, he had CT abdomen 05/05/2018 without contrast which reported single mildly dilated small bowel loop with air-fluid level in left midabdomen otherwise normal. He had multiple colonic diverticula. In ED, right upper quadrant sonogram was done and is reported normal. Lab tests are unremarkable except troponin came 1.06. EKG shows normal sinus rhythm with occasional PVCs no significant ST-T changes suggestive of ischemia. Initially, patient was admitted in PCU and then later transferred to ICU after PCI 1. Subacute/chronic abdominal pain, etiology unclear, probably malabsorption syndrome or chronic ischemic bowel disease: Patient had extensive abdominal imaging workup including CT abdomen, ultrasound and small bowel series as mentioned above. He also had about 3 times colonoscopy every 10 years starting at age 48 and last one about for 5 years ago and was told everything normal although no document available to corroborate that. Patient is being admitted on PCU. Started on clear liquid diet. Continue IV fluid. Stool studies ordered including lactoferrin, ova parasite, occult blood and C. difficile are negative. Stool for fecal fat celiac disease panel are pending. Dr. Simon advised CT abdomen with oral and IV contrast and showed no acute abnormality. Symptomatic management for nausea, abdominal pain. 2. NSTEMI with coronary artery disease in left circumflex and RCA: Serial troponins were high in the range of non-STEMI. Patient had cardiac cath and shows significant coronary atherosclerosis and left circumflex and RCA for which stenting was done. EF the same preserved. Echo was done and shows EF 40% with moderate global hypokinesis of left ventricle. Stage I diastolic dysfunction. Mild AR. Patient denies any previous cardiopulmonary history. EKG does not show ischemic changes. D-dimer is elevated: Patient already had contrast exposure for CT abdomen and th en cardiac cath today. Therefore CT angiogram of chest was canceled. Venous Doppler shows no acute evidence of DVT in bilateral lower extremities. D-dimer probably elevated secondary to coronary atherosclerosis 3. Recent cervical spine fusion surgery: Dressing is dry. Patient had cervical fusion surgery in [facility] on 05/21/2018. Dressing change 4. Hypertension: Blood pressure is controlled. DVT prophylaxis: On heparin 5000 units twice daily. Microbiology Past 72 Hours 05/28/18 23:03 Stool Enteric Bacteriology - Final 05/29/18 07:28 Stool C. difficile DNA Amplification - Final 05/28/18 14:57 Stool Stool Occult Blood (SOILA) - Final 05/28/18 14:57 Stool Stool Lactoferrin - Final Laboratory Results 05/28/18 17:00: Magnesium 2.1 05/28/18 23:03: Stool Neutral Fats Pending, Stool Total Fats Pending 05/28/18 23:10: PT 14.2, INR 1.1, APTT 48.3 H 05/29/18 05:34: Sodium 141, Potassium 4.0, Chloride 106, Carbon Dioxide 25.0, Anion Gap 10, BUN 12, Creatinine 0.69 L, Estim Creat Clear Calc 77.68, Est GFR (MDRD) Af Amer 146, Est GFR (MDRD) Non-Af 121, BUN/Creatinine Ratio 17.4, Glucose 99, Calcium 8.3 L, Total Bilirubin 0.40, AST 19, ALT 33, Alkaline Phosphatase 90, Total Protein 6.0 L, Albumin 2.6 L, Globulin 3.4, Albumin/Globulin Ratio 0.8 L, Triglycerides 128, Cholesterol 125, LDL Cholesterol 70, VLDL Cholesterol 26, HDL Cholesterol 29 L, TSH 0.31 L 05/29/18 05:34: WBC 5.9, RBC 4.53 L, Hgb 13.4, Hct 39.2 L, MCV 86.5, MCH 29.6, MCHC 34.2, RDW 12.5, RDW Differential 39.2, Plt Count 283, MPV 9.0, Immature Gran % (Auto) 0.300, Neut % (Auto) 62.2, Lymph % (Auto) 24.6, Kershaw % (Auto) 10.6 H, Eos % (Auto) 2.0, Baso % (Auto) 0.3, Absolute Neuts (auto) 3.6, Absolute Lymphs (auto) 1.44, Total Counted Not Reportable 05/29/18 05:34: PT 14.3, INR 1.1 Clinical Impression(s) from Imaging Studies Gallbladder Ultrasound 05/28/18 10:22 IMPRESSION: Normal right upper quadrant ultrasound examination. Punctate nonobstructing right midpole stone Abdomen/Pelvis CT 05/28/18 11:45 IMPRESSION: No acute abnormality is seen. Code Visit Inpatient E&M: 74661 Subs Hosp L3
[2018-05-29 16:09] LABS: Endomysial Antibody IgA Negative (Negative)
[2018-05-29] MEDS: Acetaminophen 325 MG Tablet 650 MG PO (16:36)
[2018-05-29] MEDS: Zolpidem Tartrate 5 MG Tablet PO (21:10)
[2018-05-30] VITALS (23 sets, daily range): BP systolic 96–152; BP diastolic 51–90; PULSE 74–100; RESP 11–28; TEMP 36.6–37; O2SAT 96–99
[2018-05-30] MEDS: 0.9% Normal Saline 1,000 ML 125 ML IV (02:18)
[2018-05-30] MEDS: 0.9% NaCl Peripheral Flush Adult/Peds IV (02:18)
[2018-05-30] MEDS: Acetaminophen 325 MG Tablet 650 MG PO ×3 (02:18→21:08)
[2018-05-30 02:24] LABS: Hemoglobin 12.1 g/dl (13.0-16.5); Mean Corp Hgb Conc 34.6 g/gl (32-36); Mean Corpuscular Hgb 29.6 pg (27.0-32.0); Mean Corpuscular Volume 85.6 fL (80-94); Mean Platelet Vol. 8.7 fl (6.2-12.0); Platelet Count 267 K/mm3 (150-450); RBC Distribution Width CV 12.6 % (11.6-14.6); RBC Distribution Width SD 39.4 fl (35.1-43.9); Red Blood Count 4.09 M/mm3 (4.6-6.2); White Blood Count 7.1 K/mm3 (4.4-11.0)
[2018-05-30 02:28] LABS: Scan Indicated on CBC? Y/N NO
[2018-05-30 02:35] LABS: Anion Gap 4 (5-15); BUN 7 mg/dL (7-18); BUN/Creat Ratio 11.2 RATIO (10-20); Calcium,Total 8.2 mg/dL (8.5-10.1); Chloride 106 mmol/L (98-107); Creatinine, Serum 0.62 mg/dL (0.70-1.30); EST Glomerular Filtration Rate 135 mL/min (>60); Est Glom Filt Rate - Afr Amer 163 mL/min (>60); Estimated Creatinine Clearance 77.68 ml/min; Glucose 100 mg/dL (74-106); Potassium 3.8 mmol/L (3.5-5.1); Sodium Level 139 mmol/L (136-145)
--- NOTE | 2018-05-30 08:03 | PCM.PN.HOSP ---
Patient Problems: Active and Suspected Problems (Last Reviewed 11/24/17 @ 09:22 by Sylvia Garcia) Abdominal pain (Acute) NSTEMI (non-ST elevated myocardial infarction) (Acute) S/P cervical spinal fusion (Acute) Subjective: The patient complained of sore over the right groin at the site of cardiac cath. No fever or chills. Blood pressure in the 120s. Patient complaint of mild abdominal discomfort at epigastrium. Did not had bowel movement today in the morning. Currently on clear liquid diet. Vitals/I&O's: Vital Signs Temp Pulse Resp BP Pulse Ox 98.5 F 83 17 108/52 L 97 05/30/18 04:00 05/30/18 07:11 05/30/18 07:00 05/30/18 07:00 05/30/18 07:00 Oxygen Delivery Method Room Air Weight: 178 lb Body Mass Index (BMI) 23.5 Intake and Output for Last 24 Hours 05/28/18 05/29/18 05/30/18 23:59 23:59 23:59 Intake Total 1259.5 / 1259.5 1371 / 1371 2462 / 2462 Output Total 1400 / 1400 Balance 1259.5 / 1259.5 -29 / -29 2462 / 2462 General: Alert, Oriented x3, Cooperative HEENT: Atraumatic, PERRLA, EOMI, Normocephalic Neck: Supple, No JVD, Negative Carotid Bruits Lungs: Clear to auscultation, Normal air movement, No rhonchi, No wheeze, No rales Cardiovascular: Regular rate, Regular Rhythm, Normal S1, Normal S2, No murmurs Abdomen: Bowel Sounds Present, Soft, Non Tender, Non-Distended, Hyperactive Bowel Sounds Extremities: No edema, Capillary Refill Less than 3 Seconds Skin: No rashes, No breakdown Musculoskeletal: No Tenderness to Palpation of Joints or Extremities, Tenderness - Mild tenderness over right groin site of cardiac Neurological: Cranial nerves II-XII grossly intact, Neuro grossly intact Psych/Mental Status: Normal Affect, Appropriate Microbiology Past 72 Hours 05/28/18 23:03 Stool Enteric Bacteriology - Final 05/29/18 07:28 Stool C. difficile DNA Amplification - Final 05/28/18 14:57 Stool Stool Occult Blood (SOILA) - Final 05/28/18 14:57 Stool Stool Lactoferrin - Final Laboratory Results 05/29/18 08:51: Activated Clotting Time 158 H 05/29/18 09:15: Activated Clotting Time 224 H 05/30/18 02:15: WBC 7.1, RBC 4.09 L, Hgb 12.1 L, Hct 35.0 L, MCV 85.6, MCH 29.6, MCHC 34.6, RDW 12.6, RDW Differential 39.4, Plt Count 267, MPV 8.7 05/30/18 02:15: Sodium 139, Potassium 3.8, Chloride 106, Carbon Dioxide 29.0, Anion Gap 4 L, BUN 7, Creatinine 0.62 L, Estim Creat Clear Calc 77.68, Est GFR (MDRD) Af Amer 163, Est GFR (MDRD) Non-Af 135, BUN/Creatinine Ratio 11.2, Glucose 100, Calcium 8.2 L Current Medications Acetaminophen (Tylenol) 650 mg PO Q6H PRN PRN PRN Reason: Mild Pain (0-2/10) Last Admin: 05/30/18 02:18 Dose: 650 mg Aspirin (Ecotrin) 81 mg PO DAILY@0800 [facility] Last Admin: 05/29/18 06:13 Dose: 81 mg Atropine Sulfate () 0.5 mg IV UD PRN PRN Reason: HR <50 bpm Clopidogrel Bisulfate (Plavix) 75 mg PO DAILY [facility] Last Admin: 05/29/18 06:12 Dose: 75 mg Heparin Sodium (Beef Lung) (Heparin 500 Unit/5 Ml (100/Ml)) 500 unit IV UD PRN PRN Reason: HEPARIN FLUSH Heparin Sodium (Porcine) (Heparin Na) 0 unit IV UD PRN; Protocol Last Admin: 05/29/18 00:03 Dose: 1,000 unit Sodium Chloride () 1,000 mls @ 125 mls/hr IV .Q8H [facility] Last Admin: 05/30/18 02:18 Dose: 125 mls/hr Sodium Chloride () 1,000 mls @ 0 mls/hr IV .Q0M [facility] Labetalol HCl (Trandate) 5 mg IV X1 PRN PRN Reason: SBP > 160 when pulling sheath Lorazepam (Ativan) 1 mg PO Q6H PRN PRN PRN Reason: BACK SPASMS/ANXIETY Metoclopramide HCl (Reglan) 5 mg IV Q6H PRN PRN Reason: NAUSEA/VOMITING Metoprolol Tartrate (Lopressor (Beta Cosme)) 25 mg PO BID [facility] Last Admin: 05/29/18 21:09 Dose: 25 mg Morphine Sulfate () 2 mg IV Q4H PRN PRN PRN Reason: Mild back pain (0-2/10) Last Admin: 05/29/18 12:06 Dose: 2 mg Nitroglycerin (Nitrostat) 0.4 mg SUBLINGUAL Q5M PRN PRN Reason: CHEST PAIN Nutritional Formula (Lactose Free) (Ensure Enlive) 120 ml PO 4X/DAY [facility] Last Admin: 05/29/18 21:10 Dose: Not Given Ondansetron HCl (Zofran) 4 mg IV Q6H PRN PRN PRN Reason: NAUSEA Last Admin: 05/29/18 04:08 Dose: 4 mg Sodium Chloride () 5 - 30 ml IV UD PRN PRN Reason: SALINE FLUSH Last Admin: 05/30/18 02:18 Dose: 10 ml Sodium Chloride () 500 ml IV BOLUS PRN PRN Reason: VASO-VAGAL PROTOCOL Zolpidem Tartrate (Ambien (Generic)) 5 mg PO QHS PRN PRN PRN Reason: SLEEP Last Admin: 05/29/18 21:10 Dose: 5 mg Medical Necessity - Tobacco Use Smoking Status: Former smoker Tobacco Use: Cigarettes Assessment/Plan All Active Problems (Last Reviewed 11/24/17 @ 09:22 by Sylvia Garcia) Abdominal pain (Acute) NSTEMI (non-ST elevated myocardial infarction) (Acute) S/P cervical spinal fusion (Acute) The patient is a 68 year old M with history of hypertension and cervical neuropathy status post cervical spine fusion about a week ago at [facility] came to ER with abdominal pain for about 3 months. His pain is constant, generalized but worse in upper abdomen without radiation to chest. Patient has nausea and food makes the abdominal pain worse and has loss of appetite. Patient has lost weight about 7 pounds in last 3 months. Also complaining of pencil thin like stool and sometimes he has diarrhea alternating with constipation. Patient had right inguinal hernia repair by Dr. Simon in the past and would like to see him. Patient has seen Dr. Mcgee about 3 weeks ago and had small bowel follow-through series which showed normal visualized mucosal folds of jejunum and ileum with no demonstrated dilatation, stricture or masses of the small intestine. Normal motor pattern of colon. Prior to that, he had CT abdomen 05/05/2018 without contrast which reported single mildly dilated small bowel loop with air-fluid level in left midabdomen otherwise normal. He had multiple colonic diverticula. In ED, right upper quadrant sonogram was done and is reported normal. Lab tests are unremarkable except troponin came 1.06. EKG shows normal sinus rhythm with occasional PVCs no significant ST-T changes suggestive of ischemia. Initially, patient was admitted in PCU and then later transferred to ICU after PCI 1. Subacute/chronic abdominal pain, etiology unclear, probably malabsorption syndrome or chronic ischemic bowel disease: Patient had extensive abdominal imaging workup including CT abdomen, ultrasound and small bowel series as mentioned above. He also had about 3 times colonoscopy every 10 years starting at age 48 and last one about for 5 years ago and was told everything normal although no document available to corroborate that. Started on clear liquid diet advanced to soft diet with no gastric stimulus and low residue. Continue IV fluid. Stool studies ordered including lactoferrin, ova parasite, occult blood and C. difficile are negative. Stool for fecal fat celiac disease panel are pending. Dr. Simon advised CT abdomen with oral and IV contrast and showed no acute abnormality. Symptomatic management for nausea, abdominal pain. Dr. Simon suggested outpatient EGD 2. NSTEMI with coronary artery disease in left circumflex and RCA: Serial troponins were high in the range of non-STEMI. Patient had cardiac cath and shows significant coronary atherosclerosis and left circumflex and RCA for which stenting was done. EF the same preserved. Echo was done and shows EF 40% with moderate global hypokinesis of left ventricle. Stage I diastolic dysfunction. Mild AR. Patient denies any previous cardiopulmonary history. EKG does not show ischemic changes. D-dimer is elevated: Patient already had contrast exposure for CT abdomen and then cardiac cath on 05/29/[address] angiogram of chest was canceled. Venous Doppler shows no acute evidence of DVT in bilateral lower extremities. D-dimer probably elevated secondary to coronary atherosclerosis 3. Recent cervical spine fusion surgery: Dressing is dry. Patient had cervical fusion surgery in [facility] on 05/21/2018. Dressing change 4. Hypertension: Blood pressure is controlled. DVT prophylaxis: On heparin 5000 units twice daily. Microbiology Past 72 Hours 05/28/18 23:03 Stool Enteric Bacteriology - Final 05/29/18 07:28 Stool C. difficile DNA Amplification - Final 05/28/18 14:57 Stool Stool Occult Blood (SOILA) - Final 05/28/18 14:57 Stool Stool Lactoferrin - Final Laboratory Results 05/28/18 17:00: Magnesium 2.1 05/28/18 23:03: Stool Neutral Fats Pending, Stool Total Fats Pending 05/28/18 23:10: PT 14.2, INR 1.1, APTT 48.3 H 05/29/18 05:34: Sodium 141, Potassium 4.0, Chloride 106, Carbon Dioxide 25.0, Anion Gap 10, BUN 12, Creatinine 0.69 L, Estim Creat Clear Calc 77.68, Est GFR (MDRD) Af Amer 146, Est GFR (MDRD) Non-Af 121, BUN/Creatinine Ratio 17.4, Glucose 99, Calcium 8.3 L, Total Bilirubin 0.40, AST 19, ALT 33, Alkaline Phosphatase 90, Total Protein 6.0 L, Albumin 2.6 L, Globulin 3.4, Albumin/Globulin Ratio 0.8 L, Triglycerides 128, Cholesterol 125, LDL Cholesterol 70, VLDL Cholesterol 26, HDL Cholesterol 29 L, TSH 0.31 L 05/29/18 05:34: WBC 5.9, RBC 4.53 L, Hgb 13.4, Hct 39.2 L, MCV 86.5, MCH 29.6, MCHC 34.2, RDW 12.5, RDW Differential 39.2, Plt Count 283, MPV 9.0, Immature Gran % (Auto) 0.300, Neut % (Auto) 62.2, Lymph % (Auto) 24.6, Dickinson % (Auto) 10.6 H, Eos % (Auto) 2.0, Baso % (Auto) 0.3, Absolute Neuts (auto) 3.6, Absolute Lymphs (auto) 1.44, Total Counted Not Reportable 05/29/18 05:34: PT 14.3, INR 1.1 Clinical Impression(s) from Imaging Studies Gallbladder Ultrasound 05/28/18 10:22 IMPRESSION: Normal right upper quadrant ultrasound examination. Punctate nonobstructing right midpole stone Abdomen/Pelvis CT 05/28/18 11:45 IMPRESSION: No acute abnormality is seen. Code Visit Inpatient E&M: 88607 Subs Hosp L3
--- NOTE | 2018-05-30 08:08 | PN_ITS ---
Patient Problems: Active and Suspected Problems (Last Reviewed 11/24/17 @ 09:22 by Sylvia Garcia) Abdominal pain (Acute) NSTEMI (non-ST elevated myocardial infarction) (Acute) S/P cervical spinal fusion (Acute) Subjective: The patient complained of sore over the right groin at the site of cardiac cath. No fever or chills. Blood pressure in the 120s. Patient complaint of mild abdominal discomfort at epigastrium. Did not had bowel movement today in the morning. Currently on clear liquid diet. Vitals/I&O's: Vital Signs Temp Pulse Resp BP Pulse Ox 98.5 F 83 17 108/52 L 97 05/30/18 04:00 05/30/18 07:11 05/30/18 07:00 05/30/18 07:00 05/30/18 07:00 Oxygen Delivery Method Room Air Weight: 178 lb Body Mass Index (BMI) 23.5 Intake and Output for Last 24 Hours 05/28/18 05/29/18 05/30/18 23:59 23:59 23:59 Intake Total 1259.5 / 1259.5 1371 / 1371 2462 / 2462 Output Total 1400 / 1400 Balance 1259.5 / 1259.5 -29 / -29 2462 / 2462 General: Alert, Oriented x3, Cooperative HEENT: Atraumatic, PERRLA, EOMI, Normocephalic Neck: Supple, No JVD, Negative Carotid Bruits Lungs: Clear to auscultation, Normal air movement, No rhonchi, No wheeze, No rales Cardiovascular: Regular rate, Regular Rhythm, Normal S1, Normal S2, No murmurs Abdomen: Bowel Sounds Present, Soft, Non Tender, Non-Distended, Hyperactive Bowel Sounds Extremities: No edema, Capillary Refill Less than 3 Seconds Skin: No rashes, No breakdown Musculoskeletal: No Tenderness to Palpation of Joints or Extremities, Tenderness - Mild tenderness over right groin site of cardiac Neurological: Cranial nerves II-XII grossly intact, Neuro grossly intact Psych/Mental Status: Normal Affect, Appropriate Microbiology Past 72 Hours 05/28/18 23:03 Stool Enteric Bacteriology - Final 05/29/18 07:28 Stool C. difficile DNA Amplification - Final 05/28/18 14:57 Stool Stool Occult Blood (SOILA) - Final 05/28/18 14:57 Stool Stool Lactoferrin - Final Laboratory Results 05/29/18 08:51: Activated Clotting Time 158 H 05/29/18 09:15: Activated Clotting Time 224 H 05/30/18 02:15: WBC 7.1, RBC 4.09 L, Hgb 12.1 L, Hct 35.0 L, MCV 85.6, MCH 29.6, MCHC 34.6, RDW 12.6, RDW Differential 39.4, Plt Count 267, MPV 8.7 05/30/18 02:15: Sodium 139, Potassium 3.8, Chloride 106, Carbon Dioxide 29.0, Anion Gap 4 L, BUN 7, Creatinine 0.62 L, Estim Creat Clear Calc 77.68, Est GFR (MDRD) Af Amer 163, Est GFR (MDRD) Non-Af 135, BUN/Creatinine Ratio 11.2, Glucose 100, Calcium 8.2 L Current Medications Acetaminophen (Tylenol) 650 mg PO Q6H PRN PRN PRN Reason: Mild Pain (0-2/10) Last Admin: 05/30/18 02:18 Dose: 650 mg Aspirin (Ecotrin) 81 mg PO DAILY@0800 [facility] Last Admin: 05/29/18 06:13 Dose: 81 mg Atropine Sulfate () 0.5 mg IV UD PRN PRN Reason: HR <50 bpm Clopidogrel Bisulfate (Plavix) 75 mg PO DAILY [facility] Last Admin: 05/29/18 06:12 Dose: 75 mg Heparin Sodium (Beef Lung) (Heparin 500 Unit/5 Ml (100/Ml)) 500 unit IV UD PRN PRN Reason: HEPARIN FLUSH Heparin Sodium (Porcine) (Heparin Na) 0 unit IV UD PRN; Protocol Last Admin: 05/29/18 00:03 Dose: 1,000 unit Sodium Chloride () 1,000 mls @ 125 mls/hr IV .Q8H [facility] Last Admin: 05/30/18 02:18 Dose: 125 mls/hr Sodium Chloride () 1,000 mls @ 0 mls/hr IV .Q0M [facility] Labetalol HCl (Trandate) 5 mg IV X1 PRN PRN Reason: SBP > 160 when pulling sheath Lorazepam (Ativan) 1 mg PO Q6H PRN PRN PRN Reason: BACK SPASMS/ANXIETY Metoclopramide HCl (Reglan) 5 mg IV Q6H PRN PRN Reason: NAUSEA/VOMITING Metoprolol Tartrate (Lopressor (Beta Cosme)) 25 mg PO BID [facility] Last Admin: 05/29/18 21:09 Dose: 25 mg Morphine Sulfate () 2 mg IV Q4H PRN PRN PRN Reason: Mild back pain (0-2/10) Last Admin: 05/29/18 12:06 Dose: 2 mg Nitroglycerin (Nitrostat) 0.4 mg SUBLINGUAL Q5M PRN PRN Reason: CHEST PAIN Nutritional Formula (Lactose Free) (Ensure Enlive) 120 ml PO 4X/DAY [facility] Last Admin: 05/29/18 21:10 Dose: Not Given Ondansetron HCl (Zofran) 4 mg IV Q6H PRN PRN PRN Reason: NAUSEA Last Admin: 05/29/18 04:08 Dose: 4 mg Sodium Chloride () 5 - 30 ml IV UD PRN PRN Reason: SALINE FLUSH Last Admin: 05/30/18 02:18 Dose: 10 ml Sodium Chloride () 500 ml IV BOLUS PRN PRN Reason: VASO-VAGAL PROTOCOL Zolpidem Tartrate (Ambien (Generic)) 5 mg PO QHS PRN PRN PRN Reason: SLEEP Last Admin: 05/29/18 21:10 Dose: 5 mg Medical Necessity - Tobacco Use Smoking Status: Former smoker Tobacco Use: Cigarettes Assessment/Plan All Active Problems (Last Reviewed 11/24/17 @ 09:22 by Sylvia Garcia) Abdominal pain (Acute) NSTEMI (non-ST elevated myocardial infarction) (Acute) S/P cervical spinal fusion (Acute) The patient is a 68 year old M with history of hypertension and cervical n europathy status post cervical spine fusion about a week ago at [facility] came to ER with abdominal pain for about 3 months. His pain is constant, generalized but worse in upper abdomen without radiation to chest. Patient has nausea and food makes the abdominal pain worse and has loss of appetite. Patient has lost weight about 7 pounds in last 3 months. Also complaining of pencil thin like stool and sometimes he has diarrhea alternating with constipation. Patient had right inguinal hernia repair by Dr. Simon in the past and would like to see him. Patient has seen Dr. Mcgee about 3 weeks ago and had small bowel follow-through series which showed normal visualized mucosal folds of jejunum and ileum with no demonstrated dilatation, stricture or masses of the small intestine. Normal motor pattern of colon. Prior to that, he had CT abdomen 05/05/2018 without contrast which reported single mildly dilated small bowel loop with air-fluid level in left midabdomen otherwise normal. He had multiple colonic diverticula. In ED, right upper quadrant sonogram was done and is reported normal. Lab tests are unremarkable except troponin came 1.06. EKG shows normal sinus rhythm with occasional PVCs no significant ST-T changes suggestive of ischemia. Initially, patient was admitted in PCU and then later transferred to ICU after PCI 1. Subacute/chronic abdominal pain, etiology unclear, probably malabsorption syndrome or chronic ischemic bowel disease: Patient had extensive abdominal imaging workup including CT abdomen, ultrasound and small bowel series as mentioned above. He also had about 3 times colonoscopy every 10 years starting at age 48 and last one about for 5 years ago and was told everything normal although no document available to corroborate that. Started on clear liquid diet advanced to soft diet with no gastric stimulus and low residue. Continue IV fluid. Stool studies ordered including lactoferrin, ova parasite, occult blood and C. difficile are negative. Stool for fecal fat celiac disease panel are pending. Dr. Simon advised CT abdomen with oral and IV contrast and showed no acute abnormality. Symptomatic management for nausea, abdominal pain. Dr. Simon suggested outpatient EGD 2. NSTEMI with coronary artery disease in left circumflex and RCA: Serial troponins were high in the range of non-STEMI. Patient had cardiac cath and shows significant coronary atherosclerosis and left circumflex and RCA for which stenting was done. EF the same preserved. Echo was done and shows EF 40% with moderate global hypokinesis of left ventricle. Stage I diastolic dysfunction. Mild AR. Patient denies any previous cardiopulmonary history. EKG does not show ischemic changes. D-dimer is elevated: Patient already had contrast exposure for CT abdomen and then cardiac cath on 05/29/[address] angiogram of chest was canceled. Venous Doppler shows no acute evidence of DVT in bilateral lower extremities. D-dimer probably elevated secondary to coronary atherosclerosis 3. Recent cervical spine fusion surgery: Dressing is dry. Patient had cervical fusion surgery in [facility] on 05/21/2018. Dressing change 4. Hypertension: Blood pressure is controlled. DVT prophylaxis: On heparin 5000 units twice daily. Microbiology Past 72 Hours 05/28/18 23:03 Stool Enteric Bacteriology - Final 05/29/18 07:28 Stool C. difficile DNA Amplification - Final 05/28/18 14:57 Stool Stool Occult Blood (SOILA) - Final 05/28/18 14:57 Stool Stool Lactoferrin - Final Laboratory Results 05/28/18 17:00: Magnesium 2.1 05/28/18 23:03: Stool Neutral Fats Pending, Stool Total Fats Pending 05/28/18 23:10: PT 14.2, INR 1.1, APTT 48.3 H 05/29/18 05:34: Sodium 141, Potassium 4.0, Chloride 106, Carbon Dioxide 25.0, Anion Gap 10, BUN 12, Creatinine 0.69 L, Estim Creat Clear Calc 77.68, Est GFR (MDRD) Af Amer 146, Est GFR (MDRD) Non-Af 121, BUN/Creatinine Ratio 17.4, Glucose 99, Calcium 8.3 L, Total Bilirubin 0.40, AST 19, ALT 33, Alkaline Phosphatase 90, Total Protein 6.0 L, Albumin 2.6 L, Globulin 3.4, Albumin/Globulin Ratio 0.8 L, Triglycerides 128, Cholesterol 125, LDL Cholesterol 70, VLDL Cholesterol 26, HDL Cholesterol 29 L, TSH 0.31 L 05/29/18 05:34: WBC 5.9, RBC 4.53 L, Hgb 13.4, Hct 39.2 L, MCV 86.5, MCH 29.6, MCHC 34.2, RDW 12.5, RDW Differential 39.2, Plt Count 283, MPV 9.0, Immature Gran % (Auto) 0.300, Neut % (Auto) 62.2, Lymph % (Auto) 24.6, Oliver % (Auto) 10.6 H, Eos % (Auto) 2.0, Baso % (Auto) 0.3, Absolute Neuts (auto) 3.6, Absolute Lymphs (auto) 1.44, Total Counted Not Reportable 05/29/18 05:34: PT 14.3, INR 1.1 Clinical Impression(s) from Imaging Studies Gallbladder Ultrasound 05/28/18 10:22 IMPRESSION: Normal right upper quadrant ultrasound examination. Punctate nonobstructing right midpole stone Abdomen/Pelvis CT 05/28/18 11:45 IMPRESSION: No acute abnormality is seen. Code Visit Inpatient E&M: 41610 Subs Hosp L3
[2018-05-30] MEDS: Aspirin E.C. 81 MG Tablet PO (09:38)
[2018-05-30] MEDS: Finasteride 5 MG Tablet PO (09:38)
[2018-05-30] MEDS: Losartan Potassium 50 MG Tablet PO (09:38)
[2018-05-30] MEDS: Clopidogrel Bisulfate 75 MG Tablet PO (09:38)
[2018-05-30] MEDS: Metoprolol Tartrate 25 MG Tablet PO ×2 (09:38→21:08)
--- NOTE | 2018-05-30 10:00 | EKG12_ITS ---
Test Reason : AM EKG Blood Pressure : / mmHG Vent. Rate : 083 BPM Atrial Rate : 083 BPM P-R Int : 148 ms QRS Dur : 094 ms QT Int : 408 ms P-R-T Axes : 062 -07 046 degrees QTc Int : 479 ms Sinus rhythm with frequent Premature ventricular complexes Otherwise normal ECG No previous ECGs available Confirmed by ELVI BARTON, BHARATH ([id number]), editor department IESHA SMILEY ([id number]) on 06/03/2018 3:59:45 PM Referred By: Jose Antonio Alegria Confirmed By:BHARATH BOLES MD
--- NOTE | 2018-05-30 10:41 | CL.D_ITS ---
Patient Name: MIKAELA ALLISON Study Date: 05/29/2018 Performing: Fernie Murcia MD Ht: 72.83 inches 185 cm : 1950 Wt: 178.57 lbs 81 kg Age: 68 Gender: male BSA: 2.05 PROCEDURE(S) PERFORMED [id number] W OR WO PTCA, SINGLE CORONARY ARTERY [id number], CORONARY OR GRAFT, INITIAL VESSEL [id number] W OR WO PTCA, SINGLE CORONARY ARTERY CLINICAL PROFILE AND INDICATIONS Patient presents with NSTEMI for urgent cardiac cath Indications: ACS <= 24 hrs, ACS > 24 hrs, Suspected CAD, LV Dysfunction Heart Failure: NYHA Class: 1, Newly Diagnosed: Yes, Heart Failure Type: Systolic Stress/Imaging Stress/Image Study Performed: No Stress/Image Study Performed: No Angina Classification Anginal Classification w/in 2 Weeks: CCS IV CAD Presentations: Other: Chest / Shoulder Pain; Abdominal Pain Unstable angina. Non-STEMI. Sympt om onset Date/Time: 05/28/2018 Time Not Available Comorbidities/Risk Factors: Hypertension Dyslipidemia CONCLUSIONS Elevated Left Ventricular End Diastolic Pressure Normal LV size, wall motion,and systolic function LVEF: by LV gram 60 % [place] Multivessel CAD RECOMMENDATIONS Risk factor modification Medical therapy Referred for interventional cardiology consultation regarding CAD and FFR / PCI DESCRIPTION OF PROCEDURE The patient arrived to the procedure lab. The risks and benefits of the procedure as well as a full d escription of our services here and current unavailability of surgical backup were fully explained to the patient and/or their significant other prior to the catheterization. The Timeout was completed, verifying the correct patient and procedure. The patient's procedural site was prepped and draped in the usual fashion. Local anesthetic was given subcutaneously to right groin region with Lidocaine 2%. Using a modified Seldinger technique, arterial access was obtained via the right femoral artery, a 4 Fr sheath was inserted Left Coronary Artery selective angiography was performed in multiple views us ing a 4 Fr. JL5 catheter. Right Coronary Artery selective angiography was then performed in multiple views using a 4 Fr. 3DRC catheter. Left Ventriculography was performed in CORDOVA projection using a 4 Fr . Pigtail catheter. LV to AO pullback pressures were then recorded. Right iliac selective angiography was then performed in single view.The arterial sheath was pulled and a Mynx closure device was deplo yed for hemostasis CORONARY ANGIOGRAPHY DOMINANCE: Right Dominant LEFT HEART ASSESSMENT Left Ventricular Ejection Fraction: by LV Gram 60 % Normal LV wall motion Elevated Left Ventricular End Diastolic Pressure LVEDP: 18 mmHg LEFT MAIN: Mild calcification LEFT ANTERIOR DECENDING ARTERY: PROX LAD: Moderate calcification, Mild luminal irregularities MID LAD: Diffuse: 25 % Stenosis DIAGONAL 1: Ostial - 25 % Stenosis, Mid - Diffuse: 25 % Stenosis CIRCUMFLEX ARTERY: PROX CIRC: Eccentric: Hazy: 75 % Stenosis MID CIRC: Eccentric: 25 % Stenosis RIGHT CORONARY ARTERY: Mild luminal irregularities Diffuse: Eccentric: 10-25 % Stenosis DISTAL RCA: Eccentric: Hazy: 50-75 % Stenosis VALVE FINDINGS: Normal Aortic Valve function Normal Mitral Valve function AORTIC ROOT: Angiographically normal COMPLICATIONS No Complications PROCEDURE MEDICATIONS Versed 1 mg IV Adenosine drip for FFR 23 ml IV 05/29/2018 08:58:27 Adenosine drip for FFR 23 ml IV @ 05/29/2018 08:58:27 Heparin 6000 unit(s) IV 05/29/2018 08:31:34 Heparin 4000 unit(s) IV 05/29/2018 08:55:30 Nitro 200 mcg IC 05/29/2018 08:32:49 Nitro 200 mcg IC 05/29/2018 08:32:49 Nitro 200 mcg IC 05/29/2018 08:41:35 Nitro 200 mcg IC 05/29/2018 08:54:52 IV Bolus: .9 NaCl 1100 ml total 05/29/2018 07:45:30 SUMMARY OF HEMODYNAMIC DATA Time AIR REST ECG 07:25:10 AO 123/76 (97) SA 07:44:00 LV 133/-1, 16 07:50:27 LV 136/-2, 18 07:50:34 LV 145/-4, 22 07:51:48 LV 139/-5, 17 07:51:57 LVp 137/-4, 16 07:52:02 AOp 145/75 (102) 07:52:08 Signed By Fernie Murcia MD On 05/30/2018 08:39:39 Signed By Fernie Murcia MD On 05/29/2018 18:21:35 Fernie Murcia MD
--- NOTE | 2018-05-30 10:41 | CL.I_ITS ---
Patient Name: MIKAELA ALLISON Study Date: 05/29/2018 Performing: González Delgado MD Ht: 72.83 inches 185 cm : 1950 Wt: 178.57 lbs 81 kg Age: 68 Gender: male BSA: 2.05 PROCEDURE(S) PERFORMED [id number] W OR WO PTCA, SINGLE CORONARY ARTERY [id number], CORONARY OR GRAFT, INITIAL VESSEL [id number] W OR WO PTCA, SINGLE CORONARY ARTERY CLINICAL PROFILE AND CO-MORBIDITIES Patient presents with NSTEMI for urgent cardiac cath Indications: ACS <= 24 hrs, ACS > 24 hrs, Suspected CAD, LV Dysfunction Heart Failure: NYHA Class: 1, Newly Diagnosed: Yes, Heart Failure Type: Systolic Stress/Imaging Stress/Image Study Performed: No Stress/Image Study Performed: No Angina Classification Anginal Classification w/in 2 Weeks: CCS IV CAD Presentations: Other: Chest / Shoulder Pain; Abdominal Pain Unstable angina. Non-STEMI. Sympt om onset Date/Time: 05/28/2018 Time Not Available Comorbidities/Risk Factors: Hypertension Dyslipidemia CONCLUSIONS Successful PTCA/ISADORA proximal LCX with a 3.0 x 12 Promus Synergy; post dilated with a 3.0 x 8 NC Ballo on; 75%-->0%, no dissection. Successful PTCA/ISADORA of distal RCA after FFR=0.84, utilizing a 4.0 x 20 Promus Synergy; 75%-->0%, no d issection. RECOMMENDATIONS Highly recommend quitting all tobacco products Follow up with primary tuber helper Risk factor modification ASA Indefinitley Plavix for at least 12 months Routine post interventional care Refer for Outpatient Cardiac Rehab Manual sheath removal per protocol Follow up with Dr. Delgado DESCRIPTION OF PROCEDURE The patient arrived to the procedure lab. The risks and benefits of the procedure as well as a full d escription of our services here and current unavailability of surgical backup were fully explained to the patient and/or their significant other prior to the catheterization. The Timeout was completed, verifying the correct patient and procedure. The patient's procedural site was prepped and draped in the usual fashion. Local anesthetic was given subcutaneously to right groin region with Lidocaine 2% Using a modified Seldinger technique,arterial access was obtained via the right femoral artery, a 4Fr sheath was inserted Left Coronary Artery selective angiography was performed in multiple views using a 4 Fr. JL5 catheter. Right Coronary Artery selective angiography was then performed in multiple vie ws using a 4 Fr. 3DRC catheter. Left Ventriculography was performed in CORDOVA projection using a 4 Fr. P igtail catheter. LV to AO pullback pressures were then recorded. Right iliac selective angiography wa s then performed in single view.The images were reviewed and options discussed. A decision was then m najma to proceed with an Intervention, IVUS or other adjunct procedure. Arterial sheath was exchanged for a 6 Fr 55 cm Sheath. EBU 3.75 Guide catheter was inserted and engag ed into the LCA. BMW Hatteras Guide wire was advanced to the Circumflex. 2.0 x 12 Emerge Balloon cat heter was inserted. Balloon catheter was advanced across lesion in the circumflex, proximal. Angiogra m performed pre balloon dilatation. PTCA balloon inflated at 8 atms for 50 secs. Angiogram performed post balloon dilatation. 3.0 x 12 Synergy Drug Eluting stent was inserted. Drug Eluting stent was adv anced across the lesion in the circumflex, proximal. Angiogram performed pre stent deployment. Angiog nelson performed post stent deployment. 3.0 x 8 NC Emerge Balloon catheter was inserted. Balloon cathete r was advanced across lesion in the circumflex, proximal. HS2 Guide catheter was inserted and engaged into the RCA. The FFR/iFR wire was inserted. Pressures and FFR/iFR were then recorded. FFR Ratio Bas ramy: 0.99 FFR Ratio post Adenosine: 0.84 The FFR/iFR wire was left in place as guide wire. 4.0 x 20 Synergy Drug Eluting stent was inserted. Drug Eluting stent was advanced across the lesion in the ri ght coronary, distal. Angiogram performed pre stent deployment. Angiogram performed post stent deploy ment. FFR Ratio post intervention: 0.91 The arterial sheath was pulled and a Mynx closure device wa s deployed for hemostasis INTERVENTION INFORMATION LESION SITE: Circumflex (Proximal) Lesion Complexity: Non-High/Non-C, lesion at bifurcation: No, thrombus present: No, lesion length: 12 mm, culprit lesion: Yes Pre Stenosis: 75 % Pre intervention OPHELIA flow: 3 PROCEDURE: Drug Eluting Stent with pre and post dilatation Post Stenosis: 0 % Post intervention OPHELIA flow: 3 Lesion Devices: Garcia .014 BMW Hatteras Straight 190cm Cook 6F 55cm Sheath Medtronic 6 Fr EBU3.75 100cm Guide Catheter Jonel Sci EMERGE MR 2.00x12 BALLOON Jonel Sci Synergy MR ISADORA 3.00x12 Jonel Sci NC EMERGE MR 3.00x08 BALLOON LESION SITE: RCA (Distal) Lesion Complexity: High/C, lesion at bifurcation: No, thrombus present: No, culprit lesion: No Pre Stenosis: 75 % Pre intervention OPHELIA flow: 3 PROCEDURE: Drug Eluting Stent Post Stenosis: 0 % Post intervention OPHELIA flow: 3 Lesion Devices: Medtronic 6 Fr HSII 100cm Guide Catheter IGT Devices ( Formerly [employer]) Coronary FFR Wire Jonel Sci Synergy MR ISADORA 4.00x20 COMPLICATIONS No Complications PROCEDURE MEDICATIONS Versed 1 mg IV Adenosine drip for FFR 23 ml IV 05/29/2018 08:58:27 Adenosine drip for FFR 23 ml IV @ 05/29/2018 08:58:27 Heparin 6000 unit(s) IV 05/29/2018 08:31:34 Heparin 4000 unit(s) IV 05/29/2018 08:55:30 Nitro 200 mcg IC 05/29/2018 08:32:49 Nitro 200 mcg IC 05/29/2018 08:32:49 Nitro 200 mcg IC 05/29/2018 08:41:35 Nitro 200 mcg IC 05/29/2018 08:54:52 IV Bolus: .9 NaCl 1100 ml total 05/29/2018 07:45:30 SUMMARY OF HEMODYNAMIC DATA Time AIR REST ECG 07:25:10 AO 123/76 (97) SA 07:44:00 LV 133/-1, 16 07:50:27 LV 136/-2, 18 07:50:34 LV 145/-4, 22 07:51:48 LV 139/-5, 17 07:51:57 LVp 137/-4, 16 07:52:02 AOp 145/75 (102) 07:52:08 Signed By González Delgado MD On 05/29/2018 12:32:55 González Delgado MD
[2018-05-30] MEDS: 0.9% Normal Saline 1,000 ML 75 ML IV (12:52)
[2018-05-30 13:41] LABS: Deamidated Gliadin IgA 4 units (0-19); Deamidated Gliadin IgG 3 units (0-19); Immunoglobulin A 214 mg/dL (61-437); t-Transglutaminase IgA <2 U/mL (0-3)
--- NOTE | 2018-05-30 18:38 | PCM.PN.CARD ---
Subjectve: The patient denies any ongoing chest discomfort. He denies any acute shortness of breath or dyspnea. He has been increasing his diet from clear liquids to soft. He is not complain of ongoing abdominal discomfort. He notes his bowel movements have decreased. Objective: Vital Signs Temp Pulse Resp BP Pulse Ox 97.9 F 82 16 134/82 H 99 05/30/18 17:51 05/30/18 17:51 05/30/18 17:51 05/30/18 17:51 05/30/18 17:51 Oxygen Delivery Method Room Air Weight: 178 lb Body Mass Index (BMI) 23.5 Intake and Output for Last 24 Hours 05/28/18 05/29/18 05/30/18 23:59 23:59 23:59 Intake Total 1259.5 / 1259.5 1371 / 1371 3682 / 3682 Output Total 1400 / 1400 Balance 1259.5 / 1259.5 -29 / -29 3682 / 3682 General: Awake, Alert, Oriented x 3, Cooperative, No Acute Distress HEENT: Atraumatic, Normocephalic, PERRL, EOMI, Sclera Non Icteric Oral: Moist Mucosa Neck: Supple, Good ROM, No JVD Lungs: Clear to auscultation Cardiovascular: Regular Rhythm, Premature Ectopic Beats, Normal S1, Normal S2 Abdomen: Bowel Sounds Present, Soft, Non Tender Extremities: No edema Neurological: No Focal Motor or Sensory Deficit 05/30/18 02:15: WBC 7.1, RBC 4.09 L, Hgb 12.1 L, Hct 35.0 L, MCV 85.6, MCH 29.6, MCHC 34.6, RDW 12.6, RDW Differential 39.4, Plt Count 267, MPV 8.7 05/30/18 02:15: Sodium 139, Potassium 3.8, Chloride 106, Carbon Dioxide 29.0, Anion Gap 4 L, BUN 7, Creatinine 0.62 L, Est GFR (MDRD) Af Amer 163, Est GFR (MDRD) Non-Af 135, BUN/Creatinine Ratio 11.2, Glucose 100, Calcium 8.2 L Rhythm: Sinus rhythm; PVCs Medical Necessity - Tobacco Use Smoking Status: Former smoker Tobacco Use: Cigarettes Assessment/Plan 1. CAD The patient has been diagnosed with CAD and a non-ST segment elevation IA. He did receive PCI to the LCx and RCA distribution. He will need continued medical management and follow-up. 2. Hypertension The patient has a history of hypertension. He will need to continue medical management with adjustment as needed. 3. Status post cervical spine fusion The patient states that he has been healing well from his cervical spine fusion. He states he was given no contraindication to avoidance of any particular medications, etc. His case has been with internal medicine. They did not feel there was a contraindication to antiplatelet therapy or anticoagulant therapy. 4. Abdominal discomfort The etiology of his abdominal discomfort is unclear. He has been evaluated by Dr. Simon. Based upon good Dr. Simon's report there is been no definitive etiology to explain his abdominal discomfort based upon his abdominal/pelvic CT scan. He is being considered for future endoscopy procedures by gastroenterology. They should be aware that his medical management does include antiplatelet therapy. The interim he is undergoing infectious disease evaluation. His C. difficile toxin is negative. Comment: The above was discussed with the patient, his spouse, and Dr. Alegria. This note was generated with [employer] dictation software. It may contain incorrect words, spelling, and punctuation that were not noted in checking the note before signing.
[2018-05-30] MEDS: Atorvastatin Calcium 40 MG Tablet PO (21:08)
[2018-05-30] MEDS: Zolpidem Tartrate 5 MG Tablet PO (21:09)
[2018-05-31 03:00] VITALS: BP 128/54; PULSE 77; PULSE 79; RESP 20; TEMP 37.2; O2SAT 98
[2018-05-31 05:33] LABS: Anion Gap 9 (5-15); BUN 7 mg/dL (7-18); BUN/Creat Ratio 10.4 RATIO (10-20); Calcium,Total 8.3 mg/dL (8.5-10.1); Chloride 108 mmol/L (98-107); Creatinine, Serum 0.68 mg/dL (0.70-1.30); EST Glomerular Filtration Rate 124 mL/min (>60); Est Glom Filt Rate - Afr Amer 150 mL/min (>60); Estimated Creatinine Clearance 77.68 ml/min; Glucose 108 mg/dL (74-106); Potassium 3.7 mmol/L (3.5-5.1); Sodium Level 143 mmol/L (136-145)
[2018-05-31 07:24] VITALS: PULSE 107
--- NOTE | 2018-05-31 07:54 | DCINST_ITS ---
- Discharge Diagnoses Current Active Problems: Current Active and Chronic Problems (Last Reviewed 11/24/17 @ 09:22 by Sylvia Garcia) Abdominal pain (Acute) Cervical neuropathy (Chronic) Cervical fusion surgery on 05/20/2018 Elevated troponin (Chronic) Hypertension (Chronic) NSTEMI (non-ST elevated myocardial infarction) (Acute) S/P cervical spinal fusion (Acute) You will use the following diet at home:: Cardiac - Soft/bland diet with low residue. No gastric stimulants Your food should be the consistency of: Mechanical soft (ground) Discharge Activity: May not drive while taking narcotic pain medications. Weight Bearing Status: Weight bearing as tolerated Call your doctor if you observe: Fever of 101 or Higher, Inability to have a bowel movement, Shortness of breath, Dizziness, Fainting spells, Chest pain, Calf discomfort, - - Severe abdominal pain or diarrhea Additional Instructions: Need outpatient CT angiogram of abdomen and pelvis in 1 week, about next or Sunday and follow with GI Dr. Becker. Allergies/Adverse Reactions: Allergies No Known Allergies Allergy (Verified 05/28/18 10:01) Medications to take at Discharge Finasteride [Proscar] 5 mg PO DAILY 05/05/18 Losartan Potassium 50 mg PO DAILY 05/05/18 Aspirin E.C. [Ecotrin] 81 mg PO DAILY@0800 #30 tablet 05/31/18 Atorvastatin Calcium [Lipitor] 40 mg PO QHS #30 tablet 05/31/18 Clopidogrel Bisulfate [Plavix] 75 mg PO DAILY #30 tablet 05/31/18 Docusate Sodium [Colace] 200 mg PO BID PRN PRN capsule 05/31/18 Metoprolol Tartrate [Lopressor (beta robert)] 25 mg PO BID #60 tablet 05/31/18 Nitroglycerin [Nitrostat] 0.4 mg SUBLINGUAL Q5M PRN #30 tablet 05/31/18 Omeprazole Magnesium [Prilosec Otc] 40 mg PO DAILY #60 tablet. 05/31/18 The following prescriptions were given: Aspirin E.C. [Ecotrin] 81 mg PO DAILY@0800 #30 tablet Atorvastatin Calcium [Lipitor] 40 mg PO QHS #30 tablet Clopidogrel Bisulfate [Plavix] 75 mg PO DAILY #30 tablet Nitroglycerin [Nitrostat] 0.4 mg SUBLINGUAL Q5M PRN #30 tablet PRN Reason: Chest Pain Omeprazole Magnesium [Prilosec Otc] 40 mg PO DAILY #60 tablet. Metoprolol Tartrate [Lopressor (beta robert)] 25 mg PO BID #60 tablet Primary Care Physician: Fernie Diaz MD [Primary Care Provider] - Please follow up with your Primary Care Physician in: in 1-2 weeks Test Results: Test results from this visit will be discussed in further detail at your follow- up appointment, if applicable. Please Follow Up With: Onesimo Becker MD When: in 1-2 weeks Please Follow Up With: Fernie Murcia MD When: as scheduled by his office Please Follow Up With: Real Roque MD When: in 3 weeks if abdominal discomfort persist
--- NOTE | 2018-05-31 07:55 | PCM.DC.SUM ---
Discharge Date and Diagnosis Date of Admission: 05/28/18 Date of Discharge: 05/31/18 - Primary Discharge Diagnosis Active and Suspected Problems (Last Reviewed 11/24/17 @ 09:22 by Sylvia Garcia) Subacute/chronic abdominal pain, etiology unclear, probably malabsorption syndrome or chronic ischemic bowel disease/mesenteric artery thrombosis 2. NSTEMI with coronary artery disease in left circumflex and RCA: S - Secondary Discharge Diagnosis Chronic Problems (Last Updated 11/24/17 @ 09:22 by Sylvia Garcia) Cervical neuropathy (Chronic) Cervical fusion surgery on 05/20/2018 Elevated troponin (Chronic) Hypertension (Chronic) Hospital Course and Treatment Summary of Care Provided: [] The patient is a 68 year old M with history of hypertension and cervical neuropathy status post cervical spine fusion about a week ago at [facility] came to ER with abdominal pain for about 3 months along with constipation, nausea and vomiting. Patient has lost weight about 7 pounds in last 3 months. Also complaining of pencil thin like stool and sometimes he has diarrhea alternating with constipation. Patient has seen Dr. Becker about 3 weeks ago and had small bowel follow-through series which showed normal visualized mucosal folds of jejunum and ileum with no demonstrated dilatation, stricture or masses of the small intestine. Normal motor pattern of colon. Prior to that, he had CT abdomen 05/05/2018 without contrast which reported single mildly dilated small bowel loop with air-fluid level in left midabdomen otherwise normal. He had multiple colonic diverticula. In ED, right upper quadrant sonogram was done and is reported normal. Lab tests are unremarkable except troponin came 1.06. EKG shows normal sinus rhythm with occasional PVCs no significant ST-T changes suggestive of ischemia. Initially, patient was admitted in PCU and then later transferred to ICU after PCI Patient was seen and examined today. Still feel mild upper abdominal gaseous discomfort but no pain. General: Alert, Oriented x3, Cooperative HEENT: Atraumatic, PERRLA, EOMI, Normocephalic Neck: Supple, No JVD, Negative Carotid Bruits Lungs: Clear to auscultation, Normal air movement, No rhonchi, No wheeze, No rales Cardiovascular: Regular rate, Regular Rhythm, Normal S1, Normal S2, No murmurs Abdomen: Bowel Sounds Present, Soft, Non Tender, Non-Distended Extremities: No edema, Capillary Refill Less than 3 Seconds Skin: No rashes, No breakdown Musculoskeletal: No Tenderness to Palpation of Joints or Extremities, Tenderness - Mild/slight tenderness over right groin site of cardiac Neurological: Cranial nerves II-XII grossly intact, Neuro grossly intact Psych/Mental Status: Normal Affect, Appropriate 1. Subacute/chronic abdominal pain, etiology unclear, probably malabsorption syndrome or chronic ischemic bowel disease: Patient had extensive abdominal imaging workup including CT abdomen, ultrasound and small bowel series as mentioned above. He also had about 3 times colonoscopy every 10 years starting at age 48 and last one about for 5 years ago and was told everything normal although no document available to corroborate that. Started on clear liquid diet advanced to soft diet with no gastric stimulus and low residue. Continue IV fluid. Stool studies ordered including lactoferrin, ova parasite, occult blood and C. difficile are negative. Stool for fecal fat celiac disease panel are pending. Dr. Simon advised CT abdomen with oral and IV contrast and showed no acute abnormality. Symptomatic management for nausea, abdominal pain. Dr. Simon suggested outpatient EGD 2. NSTEMI with coronary artery disease in left circumflex and RCA: Serial troponins were high in the range of non-STEMI. Patient had cardiac cath and shows significant coronary atherosclerosis and left circumflex and RCA for which stenting was done. EF the same preserved. Echo was done and shows EF 40% with moderate global hypokinesis of left ventricle. Stage I diastolic dysfunction. Mild AR. Patient denies any previous cardiopulmonary history. EKG does not show ischemic changes. Acute mild systolic heart failure secondary to non-STEMI D-dimer is elevated, most probably secondary to non-STEMI/coronary atherosclerosis: Patient already had contrast exposure for CT abdomen and then cardiac cath on 05/29/[address] angiogram of chest was canceled. Venous Doppler shows no acute evidence of DVT in bilateral lower extremities. D-dimer probably elevated secondary to coronary atherosclerosis 3. Recent cervical spine fusion surgery: Dressing is dry. Patient had cervical fusion surgery in [facility] on 05/21/2018. Dressing change 4. Hypertension: Blood pressure is controlled. DVT prophylaxis: On heparin 5000 units twice daily. Discussed in detail about possible differential diagnosis of abdominal discomfort, loss of appetite, sidophobia and loss of weight with concern of chronic ischemic bowel disease/mesenteric artery thrombosis. Patient will need CT angiogram of abdomen and pelvis to rule out mesenteric artery thrombosis. Other differentials include malabsorption syndrome or irritable bowel syndrome. Celiac panel was negative. Stool for fecal still pending I also called Dr. Becker and appraised him of clinical events during this hospital stay. He agreed with the plan of CT angiogram of abdomen in 1 week to look for mesenteric arteries. Discussed with Dr. Murcia and patient can have elective EGD on aspirin and Plavix. Prescription for BMP for next Sunday and outpatient CT angiogram of abdomen and pelvis for next was given. This was discussed in detail with patient and his . Patient was advised to continue soft mechanical diet with low residue and no gastric stimulant. Follow-up earliest in 1-[address] Becker. Discharge medication reconciliation done. Follow-up discharge instruction completed and discussed with the patient and his . Total time spent, exact 35 minutes on discharge meds reconciliation, examination, review of imaging and blood test and discussion with the patient on follow-up instructions. Discharge Activity: May not drive while taking narcotic pain medications. Weight Bearing Status: Weight bearing as tolerated Call your doctor if you observe: Fever of 101 or Higher, Inability to have a bowel movement, Shortness of breath, Dizziness, Fainting spells, Chest pain, Calf discomfort, - - Severe abdominal pain or diarrhea Home Medications: Medications to take at Discharge Finasteride [Proscar] 5 mg PO DAILY 05/05/18 Losartan Potassium 50 mg PO DAILY 05/05/18 Aspirin E.C. [Ecotrin] 81 mg PO DAILY@0800 #30 tablet 05/31/18 Atorvastatin Calcium [Lipitor] 40 mg PO QHS #30 tablet 05/31/18 Clopidogrel Bisulfate [Plavix] 75 mg PO DAILY #30 tablet 05/31/18 Docusate Sodium [Colace] 200 mg PO BID PRN PRN capsule 05/31/18 Metoprolol Tartrate [Lopressor (beta cosme)] 25 mg PO BID #60 tablet 05/31/18 Nitroglycerin [Nitrostat] 0.4 mg SUBLINGUAL Q5M PRN #30 tablet 05/31/18 Omeprazole Magnesium [Prilosec Otc] 40 mg PO DAILY #60 tablet. 05/31/18 Following Prescrptions Were Given to Patient: Aspirin E.C. [Ecotrin] 81 mg PO DAILY@0800 #30 tablet Atorvastatin Calcium [Lipitor] 40 mg PO QHS #30 tablet Clopidogrel Bisulfate [Plavix] 75 mg PO DAILY #30 tablet Nitroglycerin [Nitrostat] 0.4 mg SUBLINGUAL Q5M PRN #30 tablet PRN Reason: Chest Pain Omeprazole Magnesium [Prilosec Otc] 40 mg PO DAILY #60 tablet. Metoprolol Tartrate [Lopressor (beta cosme)] 25 mg PO BID #60 tablet Other Amb Orders: Basic Metabolic Profile (BMP) Time Frame: 06/05/18, Location: Laboratory Primary Care Physician: Fernie Diaz MD [Primary Care Provider] - Please follow up with your Primary Care Physician in: in 1-2 weeks Please Follow Up With: Onesimo Becker MD When: in 1-2 weeks Please Follow Up With: Fernie Murcia MD When: as scheduled by his office Please Follow Up With: Real Roque MD When: in 3 weeks if abdominal discomfort persist Medical Necessity - Tobacco Use Smoking Status: Former smoker Tobacco Use: Cigarettes Meaningful Use Info Meaningful Use Diagnoses (Choose all that apply): AMI - AMI Aspirin given w/in 24hrs of arrival?: Yes ASA at discharge?: Yes Statins at discharge?: Yes Moustapha/ARB at discharge?: Yes Beta Cosme at discharge?: Yes Done w/ Acute MO measure.: Yes - CHF MOUSTAPHA/ARB ordered at discharge?: Yes Documented LVEF (%): 40 Code Visit Inpatient E&M: 68407 Disch Hosp
[2018-05-31 08:04] VITALS: BP 114/82; PULSE 84; RESP 18; TEMP 36.6; O2SAT 98
[2018-05-31] MEDS: Pantoprazole Sodium 40 MG Tablet PO (08:18)
[2018-05-31 08:59] VITALS: BP 114/82; PULSE 84; RESP 18; TEMP 36.6; O2SAT 98
[2018-05-31 09:13] VITALS: O2SAT 93
[2018-05-31 09:15] VITALS: BP 125/67; PULSE 90
[2018-05-31] MEDS: Aspirin E.C. 81 MG Tablet PO (09:15)
[2018-05-31] MEDS: Metoprolol Tartrate 25 MG Tablet PO (09:15)
[2018-05-31] MEDS: Clopidogrel Bisulfate 75 MG Tablet PO (09:15)
[2018-05-31] MEDS: Losartan Potassium 50 MG Tablet PO (09:15)
[2018-05-31] MEDS: Finasteride 5 MG Tablet PO (09:15)
--- NOTE | 2018-05-31 09:40 | CASEMGMT ---
Living Will and POA forms in E-chart. ISHAN Brooks, PROJECT DESIGN ENGINEER
--- NOTE | 2018-05-31 10:00 | EKG12_ITS ---
Test Reason : AM EKG Blood Pressure : / mmHG Vent. Rate : 082 BPM Atrial Rate : 082 BPM P-R Int : 142 ms QRS Dur : 094 ms QT Int : 390 ms P-R-T Axes : 048 -02 077 degrees QTc Int : 455 ms Sinus rhythm with frequent Premature ventricular complexes Nonspecific T wave abnormality Abnormal ECG When compared with ECG of 29-MAY-2018 05:48, MANUAL COMPARISON REQUIRED, DATA IS UNCONFIRMED Confirmed by ELVI BARTON, BHARATH ([id number]), editor newspaper IESHA SMILEY ([id number]) on 06/05/2018 3:49:23 PM Referred By: Jose Antonio Alegria Confirmed By:BHARATH BOLES MD
== END 2018-05-31 09:40 | disposition home or self-care (01) | DRG 246 ==
LOC: ED 12:15 → PCU 12:27 → ICU 05-29 08:32
PROVIDERS: Hospitalist; Internal Medicine Cardiovascular Disease; Admitting Provider Internal Medicine; Emergency Provider Emergency Medicine; Family Provider Family Medicine; PCP Family Medicine; Referring Provider Internal Medicine; Visit Provider Internal Medicine
DX: I21.4 Non-ST elevation (NSTEMI) myocardial infarction (principal); I50.21 Acute systolic (congestive) heart failure; K90.9 Intestinal malabsorption, unspecified; K55.1 Chronic vascular disorders of intestine; Z98.1 Arthrodesis status; I25.10 Atherosclerotic heart disease of native coronary artery without angina pectoris; I11.0 Hypertensive heart disease with heart failure; Z87.891 Personal history of nicotine dependence; R10.9 Unspecified abdominal pain
CPT/HCPCS: 36415; 71045; 74177; 76705; 80048; 80053; 80061; 81001; 82274; 82705; 82784; 83516; 83605; 83630; 83690; 83735; 84443; 84484; 85025; 85027; 85347; 85379; 85610; 85730; 86255; 87086; 87088; 87177; 87209; 87493; 87506; 92928; 93005; 93306; 93458; 93571; 93970; 97802; 99152; 99153; 99282; C1760; J0153; J7030; J7040; Q9967; A4216; C1725; C1769; C1874; C1887; C1894; C9600; J2405

== ENCOUNTER → 2018-06-07 14:16 | Outpatient (CLI) | payer MEDICARE, BC, SELFPAY ==
[2018-05-29 13:43] VITALS: BMI 23.5
[2018-06-06 15:35] LABS: Anion Gap 4 (5-15); BUN 11 mg/dL (7-18); Calcium,Total 8.4 mg/dL (8.5-10.1); Chloride 103 mmol/L (98-107); Creatinine, Serum 0.85 mg/dL (0.70-1.30); EST Glomerular Filtration Rate 95 mL/min (>60); Est Glom Filt Rate - Afr Amer 115 mL/min (>60); Glucose 104 mg/dL (74-106); Potassium 4.2 mmol/L (3.5-5.1); Sodium Level 137 mmol/L (136-145)
--- NOTE | 2018-06-07 14:20 | CT_ITS ---
PROCEDURE: CTA ABDOMEN AND PELVIS WITH CONTRAST REASON FOR EXAM: Male, 68 years old. RADIATION DOSAGE (If Supplied By Facility): CTDIvol = ( 27.86 ) mGy, DLP = ( 709.69 ) mGycm TECHNIQUE: Transaxial images were obtained from the dome of the diaphragm to the symphysis pubis without oral contrast, and following intravenous contrast of 75 cc of Isovue-370. Sagittal and coronal reconstruction images were obtained. COMPARISON: 05/28/2018. FINDINGS: The visualized portions of lung bases demonstrate mild atelectatic changes. There are small calcified calcified nodules abutting the right hemidiaphragm. The heart size is normal. No focal lesion is seen in the liver, spleen, pancreas, adrenal glands or kidneys although the enhancement is suboptimal due to arterial phase of scanning. The spleen is markedly heterogeneous. There is no evidence of hydronephrosis. There is a small hiatal hernia. There are nonspecific fluid-filled small bowel loops on the left side of the abdomen. There is no evidence of small bowel obstruction. There is no evidence of acute diverticulitis. There is fecal retention. The appendix is visualized and appears normal. There is no demonstrated peritoneal fluid. There is mild atherosclerotic calcification of the abdominal aorta with with mild elongation and tortuosity, but without a demonstrated aneurysm. The celiac axis appears patent without significant narrowing. The superior mesenteric artery appears patent. Branches of the superior mesenteric artery are visualized and appear patent as well. The inferior mesenteric artery is patent. No significant stenosis. Both common iliac arteries are unremarkable. There are atherosclerotic calcifications without significant narrowing in the right common iliac artery and the origin of the left internal iliac artery. Normal inferior vena cava. Normal retroperitoneum. Normal urinary bladder. There is no pelvic mass lesion or lymphadenopathy. There is no pelvic fluid. There is a left-sided normal inguinal hernia containing adipose tissue. There are degenerative changes of the visualized lumbar spine. CT/CT ANGIO ABD&PEL W/O&W/DYE IMPRESSION: 1. Patent celiac axis and superior mesenteric arteries without significant stenosis. 2. Mild atherosclerotic calcifications in the abdominal aorta and iliac arteries. 3. No evidence of ischemic bowel disease on this examination. 4. Nonspecific fluid-filled small bowel loops without evidence of small bowel obstruction. Electronically Signed: eHri Desai MD at 10:25 EDT Tel , Service support ,
== END ==
PROVIDERS: Internal Medicine; Family Provider Family Medicine; PCP Family Medicine; Referring Provider Internal Medicine Gastroenterology; Visit Provider Internal Medicine Gastroenterology
DX: Z01.812 Encounter for preprocedural laboratory examination (principal); R10.9 Unspecified abdominal pain
CPT/HCPCS: 36415; 74174; 80048; Q9967

== ENCOUNTER → 2018-07-02 11:53 | Outpatient (CLI) | payer MEDICARE, BC, SELFPAY ==
[2018-05-29 13:43] VITALS: BMI 23.5
--- NOTE | 2018-07-02 15:12 | STRESSREP_ITS ---
Stress Test Report Date: 07/02/2018 Procedure: Exercise tolerance test Indications: CAD; PCI; precardiac rehabilitation evaluation Consent: Per the patient Procedure: The patient exercised on a Shayne protocol for 6 minutes completing Stage II achieving a peak heart rate of 144 bpm (96 % predicted maximal heart rate) with a peak blood pressure 130/80 mmHg and a peak MET capacity of approximately 7 MET's. The baseline ECG demonstrated normal sinus rhythm. The peak exercise ECG demonstrated no obvious ECG changes. There were occasional PVCs pretest, during exercise, and recovery. There were rare ventricular couplets pretest, during exercise, and recovery. There were rare ventricular triplets during exercise and recovery. The functional capacity was considered average. The patient had no complaint of chest discomfort during exercise or recovery. The examination was discontinued secondary to shortness of breath and fatigue. Impression: 1. Technically adequate (percent predicted maximal heart rate greater than 85%) exercise tolerance test 2. Peak exercise ECG with no obvious ECG changes 3. There were occasional PVCs pretest, during exercise, and recovery. There were rare ventricular couplets pretest, during exercise, and recovery. There were rare ventricular triplets during exercise and recovery. This note was generated with Data [employer] software. It may contain incorrect words, spelling, and punctuation that were not noted in checking the note before signing.
== END ==
PROVIDERS: Family Provider Family Medicine; PCP Family Medicine; Referring Provider Internal Medicine Cardiovascular Disease; Visit Provider Internal Medicine Cardiovascular Disease
DX: Z95.5 Presence of coronary angioplasty implant and graft (principal)
CPT/HCPCS: 93017

== ENCOUNTER → 2018-07-03 13:55 | Outpatient (CLI) | payer MEDICARE, BC, SELFPAY ==
[2018-05-29 13:43] VITALS: BMI 23.5
== END ==
PROVIDERS: Family Provider Family Medicine; PCP Family Medicine; Referring Provider Internal Medicine Cardiovascular Disease; Visit Provider Internal Medicine Cardiovascular Disease
DX: I49.3 Ventricular premature depolarization (principal); I25.10 Atherosclerotic heart disease of native coronary artery without angina pectoris; Z95.5 Presence of coronary angioplasty implant and graft
CPT/HCPCS: 93225; 93226